=== PATIENT | female | born 2000 | race Caucasian/White ===

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

== ENCOUNTER 2018-01-10 05:55 | Inpatient (IN) | payer OTHER ==
--- NOTE | 2018-01-09 20:27 | P.HPOB ---
History of Present Illness H&P Date: 01/09/18 Chief Complaint: Induction of labor This is a 17-year-old female 1 para 0 with an estimated date of confinement of 01/10/2018, estimated gestational age of 40-0/7 weeks, who presents to labor and delivery for induction of labor. She admits to good movement. She complains of back pain and lower pelvic pressure along with irregular contractions. course has been essentially uncomplicated. labs: GC-negative Chlamydia-positive, test of cure negative Hepatitis B surface antigen-negative RPR-nonreactive Rubella-immune Blood type-A+ Antibody screen-negative Hemoglobin-12.2 Random glucose-82 Obstetrical ultrasound-normal anatomy One hour Glucola-77 Group B streptococcus-negative Obstetrical history: . Gynecologic history: History of chlamydia treated early during this . Social history: She is engaged. She is unemployed. Review of Systems Constitutional: Denies chills, Denies fever Eyes: denies blurred vision, denies pain Ears, nose, mouth and throat: Denies headache, Denies sore throat Cardiovascular: Denies chest pain, Denies shortness of breath Respiratory: Denies cough Gastrointestinal: Reports abdominal pain (Irregular contractions) Genitourinary: Reports pelvic pain, Reports , Denies dysuria, Denies hematuria Musculoskeletal: Reports low back pain, Denies myalgias Integumentary: Denies pruritus, Denies rash Neurological: Denies numbness, Denies weakness 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 No significant issues noted on an osteopathic structural exam other than those noted in the History and Physical/Consult. HEENT: Within normal limits Heart: Regular rate and rhythm Lungs: Clear to auscultation bilaterally Abdomen: Cervix: 1-1/2 cm/70%/-2 station heart tones: 120s by Doppler Extremities: Negative Homans Assessment and Plan (1) 40 weeks gestation of Status: Acute Code(s): Z3A.40 - 40 WEEKS GESTATION OF SNOMED Code( s): 60879512 Plan: Proceed with oxytocin induction of labor. Expectant management. Epidural anesthesia if desired.
[2018-01-10] MEDS ORDERED: CARBOPROST TROMETHAMINE 250 MCG/ML 1 ML AMP IM PRN (06:04)
[2018-01-10] MEDS ORDERED: LIDOCAINE 0.5% (PF) 5 MG/ML (50 ML SDV) SQ PRN (06:04)
[2018-01-10] MEDS ORDERED: METHYLERGONOVINE 0.2 MG/ML 1 ML AMP IM PRN (06:04)
[2018-01-10] MEDS ORDERED: TERBUTALINE 1 MG/ML VIAL SQ PRN (06:04)
[2018-01-10] MEDS ORDERED: OXYTOCIN 20 UNITS/1000 ML NS 1,000 ML IV SCH ×2 (06:04→15:28)
[2018-01-10] MEDS ORDERED: OXYTOCIN 10 UNIT/ML 1 ML VIAL IM PRN (06:04)
[2018-01-10] MEDS ORDERED: LIDOCAINE 1% 20 ML VIAL (10MG/ML) FOR IV START INTRADERMA PRN (06:04)
[2018-01-10] MEDS: LACTATED RINGERS 1,000 ML IV SCH ×2 (06:11→09:46)
[2018-01-10 06:12] VITALS: BMI 26.6
[2018-01-10 06:29] LABS: Basophils % (A) 0 %; Eosinophils # (A) 0.1 k/uL (0-0.7); Eosinophils % (A) 2 %; HCT 34.3 % (34.0-46.0); HGB 11.1 gm/dL (11.4-16.0); Lymphocytes # (A) 1.2 k/uL (1.0-4.8); Lymphocytes % (A) 17 %; MCHC 32.4 g/dL (31.0-37.0); MCV 83.5 fL (80.0-100.0); Mean Platelet Volume 10.2; Monocytes # (A) 0.3 k/uL (0-1.0); Monocytes % (A) 5 %; Neutrophils # (A) 5.2 k/uL (1.3-7.7); Neutrophils % (A) 75 %; Platelet Count 130 k/uL (150-450); RDW 15.3 % (11.5-15.5)
[2018-01-10] MEDS ORDERED: fentaNYL (PF) 50 MCG/ML 5 ML AMP ONE (09:12)
[2018-01-10] MEDS ORDERED: SODIUM CHLORIDE 0.9% 100 ML BAG ONE (09:12)
[2018-01-10] MEDS ORDERED: ROPIVACAINE 5MG/ML 20ML VIAL ONE (09:12)
[2018-01-10] MEDS ORDERED: SIMETHICONE 80 MG CHEWABLE PO PRN (15:28)
[2018-01-10] MEDS ORDERED: diphenhydrAMINE 50 MG/ML 1 ML VIAL IVP PRN ×2 (15:28)
[2018-01-10] MEDS ORDERED: LANOLIN CREAM 5 GM TUBE TOPICAL PRN (15:28)
[2018-01-10] MEDS ORDERED: BENZOCAINE/MENTHOL SPRAY 1 GM/SPRAY AEROSOL TOPICAL PRN (15:28)
[2018-01-10] MEDS ORDERED: WITCH HAZEL 1 EACH MED..PAD TOPICAL PRN (15:28)
[2018-01-10] MEDS ORDERED: diphenhydrAMINE 50 MG CAP PO PRN (15:28)
[2018-01-10] MEDS ORDERED: diphenhydrAMINE 25 MG CAP PO PRN (15:28)
[2018-01-10] MEDS ORDERED: ZOLPIDEM 5 MG TAB PO PRN (15:28)
[2018-01-10] MEDS ORDERED: HYDROCORTISONE 2.5% RECTAL CREAM 30 GM TUBE RECTAL PRN (15:28)
[2018-01-10] MEDS: IBUPROFEN 600 MG TAB PO PRN (16:15)
--- NOTE | 2018-01-10 17:27 | P.PROBDLV ---
Vaginal Delivery Note - . Vaginal Delivery Note: The patient progressed to complete dilation after oxytocin induction of labor and artificial rupture membranes with clear fluid noted. She did receive epidural anesthesia while in labor. Once reaching complete, she began pushing. Infant's head came to a crown. With one further push, the 's head delivered across the perineum in a right occiput anterior lie. The then restituted in a counterclockwise fashion to deliver the right shoulder anteriorly followed by the remainder the . Nose and mouth were bulb suctioned after delivery and was placed on mother's abdomen. Cord was clamped and cut and brisk cry was noted immediately. A viable male infant was noted with scores of 9 at 1 minute and 9 at 5 minutes and weight of 8 lbs. 5 oz. Placenta delivered shortly thereafter, intact, with a three- vessel cord. Uterus contracted well after oxytocin was given and uterine massage was carried out. Inspection of the perineum revealed bilateral periurethral lacerations. These areas were anesthetized with 1% lidocaine and then sutured with 3-0 Vicryl suture in a running locked fashion. Estimated blood loss is approximately 150 mL's. Both mother and are in stable condition.
[2018-01-10] MEDS: ACETAMINOPHEN TAB 325 MG TAB PO PRN (20:30)
[2018-01-10] MEDS: SENNOSIDES-DOCUSATE SODIUM 1 EACH TAB PO SCH ×2 (20:30→21:05)
[2018-01-11] MEDS: IBUPROFEN 600 MG TAB PO PRN (03:54)
[2018-01-11 07:07] LABS: Basophils % (A) 0 %; Eosinophils # (A) 0.1 k/uL (0-0.7); Eosinophils % (A) 1 %; HCT 31.5 % (34.0-46.0); HGB 10.3 gm/dL (11.4-16.0); Hypochromasia Slight; Lymphocytes % (A) 10 %; MCH 28.1 pg (25.0-35.0); MCHC 32.7 g/dL (31.0-37.0); Mean Platelet Volume 9.5; Monocytes # (A) 0.4 k/uL (0-1.0); Monocytes % (A) 4 %; Neutrophils # (A) 8.1 k/uL (1.3-7.7); Neutrophils % (A) 83 %; Platelet Count 127 k/uL (150-450); RBC 3.67 m/uL (3.80-5.40); RDW 15.5 % (11.5-15.5); WBC 9.7 k/uL (4.0-11.0)
[2018-01-11] MEDS: ACETAMINOPHEN TAB 325 MG TAB PO PRN (07:35)
[2018-01-11] MEDS: SENNOSIDES-DOCUSATE SODIUM 1 EACH TAB PO SCH (07:39)
--- NOTE | 2018-01-11 08:44 | P.DS ---
Providers Date of admission: 01/10/18 05:55 Expected date of discharge: 01/11/18 Attending physician: Renata Malik Primary care physician: Stated None - Discharge Diagnosis(es) (1) 40 weeks gestation of Current Visit: No Status: Acute Hospital Course: This is a 17-year-old female 1 para 0 at 40-0/7 weeks who presented to labor and delivery for induction of labor and delivered vaginally a viable male on 01/10/2018 with scores of 9 at 1 minute and 9 at 5 minutes and weight of 8 lbs. 5 oz. Her course has been essentially uncomplicated. Lochia is decreasing. Pain is fairly well controlled with ibuprofen. She is bottle feeding. Vital signs are stable. Abdomen is soft with fundus firm and nontender. Extremities show negative Homans. Impression is status post vaginal delivery day #1. Plan is to discharge home later today. Routine instructions are given. She will be given a prescription for ibuprofen. She is advised follow-up in the office in 6 weeks for check. She is advised to call the office if she has any further questions or concerns prior to her appointment time. Procedures: Oxytocin induction of labor Spontaneous vaginal delivery of a viable male on 01/10/2018 Patient Condition at Discharge: Stable Plan - Discharge Summary New Discharge Prescriptions: New Ibuprofen [Motrin] 600 mg PO Q6HR PRN #60 tab PRN Reason: Mild Pain Or Fever >= 100.5 Continue Pedi Multivit No.25/Folic Acid [Flintstones Multivit Chew Tab] 300 mcg PO DAILY Discharge Medication List Pedi Multivit No.25/Folic Acid [Flintstones Multivit Chew Tab] 300 mcg PO DAILY 11/15/17 [History] Ibuprofen [Motrin] 600 mg PO Q6HR PRN #60 tab 01/11/18 [Rx] Follow up Appointment(s)/Referral(s): Renata Malik DO [Doctor of Osteopathic Medicine] - 6 Weeks Activity/Diet/Wound Care/Special Instructions: Instructions 1. Do not begin any exercise program for 3 weeks. 2. Do not resume sexual relations for 3 weeks or longer if uncomfortable. 3. You may take tub baths or showers at any time. 4. You may use tampons if desired after 3 weeks. 5. Keep the area of episiotomy (stitches) clean and dry. 6. If you are not nursing, wear a good fitting, supportive bra during the day and limit fluid intake for at least 1 week to prevent breast engorgement. 7. Call the office, [phone], within the next week to make appointment for your 6 week checkup if it has not already been made. 8. Report any of the following occurrences to the doctor promptly: a. Heavy, excessive bleeding b. Chills, fever c. Burning or frequency of urination d. Pain or redness and breasts if nursing e. Increasing pain or swelling in episiotomy (stitches). In addition to the above instructions, the following additional should be followed: 1. No heavy lifting or straining (exercising) until after 6 week checkup. 2. Keep abdominal incision clean and dry: You may wear a dressing if more comfortable. 3. Make office appointment for 10 days after going home or as instructed by her doctor. Discharge Disposition: HOME SELF-CARE
[2018-01-11 12:02] VITALS: RESP 18
[2018-01-11 16:09] VITALS: BP 123/69; PULSE 83; TEMP 97.8
== END 2018-01-11 17:00 | disposition home or self-care (01) | DRG 807 ==
LOC: 4FBP 05:55
PROVIDERS: ADMIT Obstetrics & Gynecology; ATTEND Obstetrics & Gynecology
PROC: 0UQMXZZ Repair Vulva, External Approach (ICD-10-PCS; principal; 2018-01-10)
PROC: 10E0XZZ Delivery of Products of Conception, External Approach (ICD-10-PCS; principal; 2018-01-10)
PROC: 3E033VJ Introduction of Other Hormone into Peripheral Vein, Percutaneous Approach (ICD-10-PCS; principal; 2018-01-10)
PROC: 3E0R3NZ Introduction of Analgesics, Hypnotics, Sedatives into Spinal Canal, Percutaneous Approach (ICD-10-PCS; principal; 2018-01-10)
PROC: 10907ZC Drainage of Amniotic Fluid, Therapeutic from Products of Conception, Via Natural or Artificial Opening (ICD-10-PCS; principal; 2018-01-10)
PROC: 00HU33Z Insertion of Infusion Device into Spinal Canal, Percutaneous Approach (ICD-10-PCS; principal; 2018-01-10)
DX: O48.0 Post-term pregnancy (principal); Z37.0 Single live birth; Z3A.40 40 weeks gestation of pregnancy; O71.82 Other specified trauma to perineum and vulva
CPT/HCPCS: 85025; 86850; 86900; 86901

== ENCOUNTER 2020-03-05 23:19 | Emergency (ER) | payer OTHER ==
[2020-03-05 23:27] VITALS: TEMP 98.2
--- NOTE | 2020-03-05 23:40 | ED ---
Abdominal Pain HPI - General Chief Complaint: Abdominal Pain Stated Complaint: Abd Pain, 7 wks Time Seen by Provider: 03/05/20 23:29 Source: patient Mode of arrival: ambulatory Limitations: no limitations - History of Present Illness Initial Comments: 19-year-old female patient presents to the emergency department today for evaluation of left lower quadrant abdominal pain radiating through to her back. She is 7 weeks , . Patient states the pain has been going on for the last couple of days. States it hurts to sit up, lie down, stand, or walk. She denies any abnormal vaginal bleeding or discharge. Denies hematuria, dysuria, urinary frequency, urinary urgency. She does admit to the having some constipation, states she hasn't had a bowel movement over the last several days. States that when she tried to have a bowel movement earlier it caused pain in her rectal area and increased pain in her abdomen. Denies any nausea or vomiting. States she was seen and evaluated at [facility] on 03/02 for mild vaginal bleeding. States her hCG was around 5300 and her US showed a fetus, but no heart tones. She was informed that it could be too early to see the heart beat and was advised to have lab follow up. Patient denies any recent rash, fever, chills, cough, shortness of breath, chest pain, numbness, tingling, dizziness, weakness, headache, visual changes, or any other complaints. - Related Data Home Medications Medication Instructions Recorded Confirmed Pedi Multivit No.25/Folic Acid 300 mcg PO DAILY 11/15/17 01/10/18 [[place] Multivit Chew Tab] Previous Rx's Medication Instructions Recorded Ibuprofen [Motrin] 600 mg PO Q6HR PRN #60 tab 01/11/18 Cephalexin [Keflex] 500 mg PO Q6H #28 cap 03/06/20 Allergies Allergy/AdvReac Type Severity Reaction Status Date / Time No Known Allergies Allergy Verified 03/05/20 23:26 Review of Systems ROS Statement: Those systems with pertinent positive or pertinent negative responses have been documented in the HPI. ROS Other: All systems not noted in ROS Statement are negative. 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 History of Any Multi-Drug Resistant Organisms: None Reported Past Surgical History: No Surgical Hx Reported Additional Past Surgical History / Comment(s): tubes in ears as child Past Anesthesia/Blood Transfusion Reactions: No Reported Reaction Past Psychological History: Anxiety, Depression Smoking Status: Never smoker Past Alcohol Use History: None Reported Past Drug Use History: None Reported - Past Family History Father Family Medical History: No Reported History General Exam Limitations: no limitations General appearance: alert, in no apparent distress, other (This is a well-d eveloped, well-nourished adult female patient in no acute distress. Vital signs upon presentation are temperature 98.2F, pulse 86, respirations 20, blood pressure 125/79, pulse ox 99% on room air.) ENT exam: Present: normal exam, normal oropharynx, mucous membranes moist Respiratory exam: Present: normal lung sounds bilaterally. Absent: respiratory distress, wheezes, rales, rhonchi, stridor Cardiovascular Exam: Present: regular rate, normal rhythm, normal heart sounds. Absent: systolic murmur, diastolic murmur, rubs, gallop, clicks GI/Abdominal exam: Present: soft, tenderness (Left lower left upper quadrant tenderness), normal bowel sounds. Absent: distended, guarding, rebound, rigid Neurological exam: Present: alert, oriented X3, CN II-XII intact Psychiatric exam: Present: normal affect, normal mood Skin exam: Present: warm, dry, intact, normal color. Absent: rash Course Vital Signs 03/05/20 03/06/20 23:21 01:03 Temperature 98.2 F Pulse Rate 86 89 Respiratory 20 18 Rate Blood Pressure 125/79 134/63 O2 Sat by Pulse 99 100 Oximetry Medical Decision Making - Medical Decision Making 19-year-old female patient presented to the emergency department today for evaluation of left lower quadrant abdominal pain. She is 7 weeks , . Physical examination did reveal tenderness over the lower abdomen mostly over the left lower and upper quadrant. Labs reviewed and did reveal hCG level at 9000. Urinalysis showed positive nitrate concerning for UTI. I did review ultrasound report from [facility] obtained on 03/02/2020 showed intrauterine of uncertain viability. Gestational sac is irregular. [place]-rump length measures 6.2 mm corresponding to 6 weeks 3 days estimated gestational age. No heart tones were detected. This is un certain via bili but does not yet reached sonographic criteria for failed first trimester . Given increase in hCG here we will give another prescription for repeat hCG in 2 days to be performed at this lab. She is instructed to follow-up with Dr. Malik as possible and have a repeat ultrasound performed within the next week or 2. She was instructed to return immediately should she develop any worsening pain or heavy vaginal bleeding. She is also given antibiotic for UTI. Patient is agreeable with this plan. - Lab Data Result diagrams: 03/06/20 00:20 03/06/20 00:20 Lab Results 03/06/20 03/06/20 03/06/20 Range/Units 00:20 00:20 00:20 WBC 5.8 (3.8-10.6) k/uL RBC 4.16 (3.80-5.40) m/uL Hgb 11.8 (11.4-16.0) gm/dL Hct 36.3 (34.0-46.0) % MCV 87.5 (80.0-100.0) fL MCH 28.3 (25.0-35.0) pg MCHC 32.4 (31.0-37.0) g/dL RDW 14.1 (11.5-15.5) % Plt Count 159 (150-450) k/uL MPV 10.0 Neutrophils % 71 % Lymphocytes % 19 % Monocytes % 6 % Eosinophils % 2 % Basophils % 0 % Neutrophils # 4.1 (1.3-7.7) k/uL Lymphocytes # 1.1 (1.0-4.8) k/uL Monocytes # 0.3 (0-1.0) k/uL Eosinophils # 0.1 (0-0.7) k/uL Basophils # 0.0 (0-0.2) k/uL Sodium 138 (137-145) mmol/L Potassium 4.0 (3.5-5.1) mmol/L Chloride 106 (98-107) mmol/L Carbon Dioxide 24 (22-30) mmol/L Anion Gap 8 mmol/L BUN 12 (7-17) mg/dL Creatinine 0.80 (0.52-1.04) mg/dL Est GFR (CKD-EPI)AfAm >90 (>60 ml/min/1.73 sqM) Est GFR (CKD-EPI)NonAf >90 (>60 ml/min/1.73 sqM) Glucose 118 H (74-99) mg/dL Calcium 9.2 (8.4-10.2) mg/dL Total Bilirubin 0.3 (0.2-1.3) mg/dL AST 20 (14-36) U/L ALT 16 (4-34) U/L Alkaline Phosphatase 40 (38-126) U/L Total Protein 6.9 (6.3-8.2) g/dL Albumin 4.3 (3.5-5.0) g/dL HCG, Quant 9079.5 mIU/mL Urine Color Yellow Urine Appearance Cloudy H (Clear) Urine pH 5.5 (5.0-8.0) Ur Specific [place] 1.036 H (1.001-1.035) Urine Protein Trace H (Negative) Urine Glucose (UA) Negative (Negative) Urine Ketones Negative (Negative) Urine Blood Moderate H (Negative) Urine Nitrite Positive H (Negative) Urine Bilirubin Negative (Negative) Urine Urobilinogen <2.0 (<2.0) mg/dL Ur Leukocyte Esterase Negative (Negative) Urine RBC 3 (0-5) /hpf Urine WBC 5 (0-5) /hpf Ur Squamous Epith Cells 5 H (0-4) /hpf Calcium Oxalate Crystal Many H (None) /hpf Urine Bacteria Rare H (None) /hpf Urine Mucus Occasional H (None) /hpf Disposition Clinical Impression: Urinary tract infection, Abdominal pain during Disposition: HOME SELF-CARE Condition: Good Instructions (If sedation given, give patient instructions): Abdominal Pain in (ED), Urinary Tract Infection in (ED) Additional Instructions: Complete antibiotic prescription and full. Increase fluids. Return for repeat lab draw in 2 days. Follow-up with Dr. Clarke as soon as possible. Return to the emergency department for any new, worsening, or concerning symptoms. Prescriptions: Cephalexin [Keflex] 500 mg PO Q6H #28 cap Is patient prescribed a controlled substance at d/c from ED?: No Referrals: Jenn Ibrahim MD [Primary Care Provider] - 1-2 days Renata Malik DO [Doctor of Osteopathic Medicine] - 1-2 days Time of Disposition: 01:30
[2020-03-06] MEDS: SODIUM CHLORIDE 0.9% 1,000 ML IV ONE (00:15)
[2020-03-06 00:25] LABS: Basophils % (A) 0 %; Eosinophils # (A) 0.1 k/uL (0-0.7); Eosinophils % (A) 2 %; HCT 36.3 % (34.0-46.0); HGB 11.8 gm/dL (11.4-16.0); Lymphocytes # (A) 1.1 k/uL (1.0-4.8); Lymphocytes % (A) 19 %; MCH 28.3 pg (25.0-35.0); MCHC 32.4 g/dL (31.0-37.0); MCV 87.5 fL (80.0-100.0); Monocytes # (A) 0.3 k/uL (0-1.0); Monocytes % (A) 6 %; Neutrophils # (A) 4.1 k/uL (1.3-7.7); Neutrophils % (A) 71 %; Platelet Count 159 k/uL (150-450); RBC 4.16 m/uL (3.80-5.40); RDW 14.1 % (11.5-15.5); WBC 5.8 k/uL (3.8-10.6)
[2020-03-06 00:30] LABS: Appearance,Urine Cloudy (Clear); Bacteria,Urine Rare /hpf; Bilirubin,Urine Negative (Negative); Blood,Urine Moderate (Negative); Calcium Oxalate Crystals,Urine Many /hpf; Color,Urine Yellow; Glucose,Urine (UA) Negative (Negative); Ketones,Urine Negative (Negative); Leukocyte Esterase,Urine Negative (Negative); Mucus,Urine Occasional /hpf; Nitrite,Urine Positive (Negative); PH, Urine 5.5 (5.0-8.0); Protein,Urine Trace (Negative); RBC,Urine 3 /hpf (0-5); Specific Gravity,Urine 1.036 (1.001-1.035); Squamous Epithelial Cell,Urine 5 /hpf (0-4); Urobilinogen,Urine <2.0 mg/dL (<2.0); WBC,Urine 5 /hpf (0-5)
[2020-03-06 00:35] LABS: ALT 16 U/L (4-34); AST 20 U/L (14-36); African American GFR (CKD) >90 (>60 ml/min/1.73 sqM); Albumin 4.3 g/dL (3.5-5.0); Alkaline Phosphatase 40 U/L (38-126); Anion Gap 8 mmol/L; Blood Urea Nitrogen 12 mg/dL (7-17); Calcium 9.2 mg/dL (8.4-10.2); Carbon Dioxide 24 mmol/L (22-30); Chloride 106 mmol/L (98-107); Glucose 118 mg/dL (74-99); Non-African American GFR(CKD) >90 (>60 ml/min/1.73 sqM); Sodium 138 mmol/L (137-145); Total Bilirubin 0.3 mg/dL (0.2-1.3); Total Protein 6.9 g/dL (6.3-8.2)
[2020-03-06 00:51] LABS: HCG,Quantitative Serum 9079.5 mIU/mL
[2020-03-06] MEDS: cefTRIAXone IN SWFI 1,000 MG/10 ML SYRINGE IVP STA (01:02)
[2020-03-06 01:05] VITALS: BP 134/63; PULSE 89; RESP 18
== END 2020-03-06 01:41 | disposition home or self-care (01) ==
LOC: EC 23:19
DX: O23.41 Unspecified infection of urinary tract in pregnancy, first trimester (principal); Z3A.01 Less than 8 weeks gestation of pregnancy
CPT/HCPCS: 36415; 80053; 85025; 81001; 84702; 99284; 96374; 96361; J0696

== ENCOUNTER 2020-03-07 20:32 | Inpatient (IN) | payer OTHER ==
[~2020-03-07 20:32] MED LIST: LACTATED RINGERS 1,000 ML IV ONE; SODIUM CHLORIDE 0.9% 500 ML 500 ML IV ONE
[2020-03-07] MEDS ORDERED: MORPHINE SULFATE 4 MG/ML SYRINGE IVP STA (21:17)
[2020-03-07 21:28] LABS: Basophils % (A) 0 %; Eosinophils % (A) 0 %; HCT 31.2 % (34.0-46.0); HGB 10.6 gm/dL (11.4-16.0); Lymphocytes # (A) 0.6 k/uL (1.0-4.8); Lymphocytes % (A) 5 %; MCH 29.5 pg (25.0-35.0); MCHC 33.9 g/dL (31.0-37.0); MCV 87.1 fL (80.0-100.0); Mean Platelet Volume 9.9; Monocytes # (A) 0.4 k/uL (0-1.0); Monocytes % (A) 3 %; Neutrophils # (A) 9.9 k/uL (1.3-7.7); Neutrophils % (A) 90 %; Platelet Count 159 k/uL (150-450); RBC 3.58 m/uL (3.80-5.40); RDW 13.9 % (11.5-15.5); WBC 10.9 k/uL (3.8-10.6)
[2020-03-07 21:37] LABS: ALT 15 U/L (4-34); AST 18 U/L (14-36); African American GFR (CKD) >90 (>60 ml/min/1.73 sqM); Albumin 4.3 g/dL (3.5-5.0); Alkaline Phosphatase 53 U/L (38-126); Amylase 75 U/L (30-110); Anion Gap 8 mmol/L; Blood Urea Nitrogen 10 mg/dL (7-17); Calcium 9.2 mg/dL (8.4-10.2); Carbon Dioxide 23 mmol/L (22-30); Chloride 105 mmol/L (98-107); Glucose 145 mg/dL (74-99); Lipase 60 U/L (23-300); Non-African American GFR(CKD) >90 (>60 ml/min/1.73 sqM); Potassium 3.7 mmol/L (3.5-5.1); Sodium 136 mmol/L (137-145); Total Bilirubin 0.5 mg/dL (0.2-1.3)
[2020-03-07 21:49] LABS: Appearance,Urine Cloudy (Clear); Bilirubin,Urine Negative (Negative); Blood,Urine Large (Negative); Color,Urine Light Red; Glucose,Urine (UA) Negative (Negative); Ketones,Urine Negative (Negative); Leukocyte Esterase,Urine Trace (Negative); Mucus,Urine Many /hpf; Nitrite,Urine Negative (Negative); PH, Urine 5.5 (5.0-8.0); Protein,Urine 1+ (Negative); RBC,Urine >182 /hpf (0-5); Specific Gravity,Urine 1.025 (1.001-1.035); Squamous Epithelial Cell,Urine 8 /hpf (0-4); Urobilinogen,Urine <2.0 mg/dL (<2.0); WBC,Urine 37 /hpf (0-5)
[2020-03-07 21:53] LABS: HCG,Quantitative Serum 2989.3 mIU/mL
--- NOTE | 2020-03-07 21:53 | ED ---
General Adult HPI - General Source: patient, RN notes reviewed Mode of arrival: wheelchair Limitations: no limitations <Orion Morgan - Last Filed: 03/07/20 23:03> <Tomasz Wang - Last Filed: 03/11/20 07:32> - General Chief complaint: Abdominal Pain Stated complaint: Constipation/Vaginal Bleeding(8 weeks)/Passed Out Time Seen by Provider: 03/07/20 20:48 - History of Present Illness Initial comments: 19-year-old female currently 8 weeks presents to the emergency room for a chief complaint of abdominal pain. LMP is 01/15/2020. Patient reports that she started having vaginal bleeding and abdominal pain about 5 days ago. States that she was seen at [facility] and had an ult rasound performed. Ultrasound report included below but IUP was seen. Patient states the bleeding has continued since that time. She thought she was constipated and did have an enema here 2 days ago and was successful. Patient states this helped with her pain at that time however the next day it had worsened again. It is a sharp pain in her suprapubic area..Patient has no other complaints at this time including shortness of breath, chest pain, nausea or vomiting, headache, or visual changes. US report from 03/02/20: Intrauterine of uncertain viability. Gestational sac is irregular. [place]-rump length measures 6.2 mm corresponding to 6 week 3 day estimated gestational age. No heart tones detected. (Orion Morgan) - Related Data Home Medications Medication Instructions Recorded Confirmed Acetaminophen [Tylenol] 2,000 mg PO ONCE PRN 03/07/20 03/08/20 Pnv No.95/Ferrous Fum/Folic AC 1 tab PO DAILY 03/07/20 03/08/20 [ Multivitamin Tablet] Previous Rx's Medication Instructions Recorded Acetaminophen-Codeine 300-30mg 1 each PO Q4HR PRN #18 tab 03/11/20 [Tylenol w/codeine #3] Cephalexin [Keflex] 500 mg PO Q6HR 7 Days #28 cap 03/11/20 Ibuprofen [Motrin] 600 mg PO Q6HR PRN #30 tab 03/11/20 Allergies Allergy/AdvReac Type Severity Reaction Status Date / Time pineapple Allergy Unknown Verified 03/08/20 02:59 Review of Systems ROS Other: All systems not noted in ROS Statement are negative. <Orion Morgan Rian - Last Filed: 03/07/20 23:03> ROS Other: All systems not noted in ROS Statement are negative. <Tomasz Wang - Last Filed: 03/11/20 07:32> ROS Statement: Those systems with pertinent positive or pertinent negative responses have been documented in the HPI. 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 History of Any Multi-Drug Resistant Organisms: None Reported Past Surgical History: No Surgical Hx Reported Additional Past Surgical History / Comment(s): tubes in ears as child Past Anesthesia/Blood Transfusion Reactions: No Reported Reaction Past Psychological History: Anxiety, Depression Smoking Status: Never smoker Past Alcohol Use History: None Reported Past Drug Use History: None Reported - Past Family History Father Family Medical History: No Reported History <Orion Morgan Rian - Last Filed: 03/07/20 23:03> General Exam Limitations: no limitations General appearance: alert, in no apparent distress Head exam: Present: atraumatic, normocephalic, normal inspection Eye exam: Present: normal appearance, PERRL, EOMI. Absent: scleral icterus, conjunctival injection, periorbital swelling ENT exam: Present: normal exam, mucous membranes moist Neck exam: Present: normal inspection, full ROM. Absent: tenderness, meningismus, lymphadenopathy Respiratory exam: Present: normal lung sounds bilaterally. Absent: respiratory distress, wheezes, rales, rhonchi, stridor Cardiovascular Exam: Present: regular rate, normal rhythm, normal heart sounds. Absent: systolic murmur, diastolic murmur, rubs, gallop, clicks GI/Abdominal exam: Present: soft, normal bowel sounds. Absent: distended, tenderness, guarding, rebound, rigid Rectal exam: Present: normal inspection, other (Erich JOSEPH present for exam). Absent: fecal impaction External exam: Present: normal external exam, other (Erich RN present for exam). Absent: erythema, swelling, lesions, lacerations, ecchymosis Speculum exam: Present: vaginal bleeding (Minimal). Absent: normal speculum exam, erythema, vaginal discharge, cervical discharge, foreign body, tissue, laceration By manual exam: Present: uterine tenderness. Absent: cervical motion tenderness, adnexal tenderness, adnexal mass, other Neurological exam: Present: alert <Orion Morgan - Last Filed: 03/07/20 23:03> Course Vital Signs 03/07/20 03/07/20 03/07/20 20:45 21:35 22:00 Temperature 97.9 F Pulse Rate 115 H 104 H Respiratory 22 20 20 Rate Blood Pressure 116/59 116/76 109/62 O2 Sat by Pulse 100 100 Oximetry 03/07/20 03/07/20 03/07/20 22:25 22:51 23:35 Temperature 99.3 F 99.3 F Pulse Rate 101 H 107 H 110 H Respiratory 20 18 16 Rate Blood Pressure 116/70 112/91 O2 Sat by Pulse 99 99 99 Oximetry Medical Decision Making - Lab Data Result diagrams: 03/07/20 21:11 03/07/20 21:11 <Orion Morgan - Last Filed: 03/07/20 23:03> - Lab Data Result diagrams: 03/10/20 07:12 03/07/20 21:11 <Tomasz Wang - Last Filed: 03/11/20 07:32> - Medical Decision Making Patient presents to the emergency room with a chief complaint of vaginal bleeding and abdominal pain. Patient reports she is constipated and has tried everything never bowel movement such as drinking apple juice but it is just not helping. Patient currently 8 weeks and is a female with an LMP of January 14. Previous ultrasound was reviewed which showed an IUP without heart tones from 03/02/2020. Pelvic exam was performed and there was minimal vaginal bleeding at this time of her patient is tender in the uterine area. CBC does reveal hemoglobin of 10.6 which is about 1 point lower than 2 days ago. CMP unremarkable. HCG reveals a down trending quadrant from 9000 to 2900. Repeat ultrasound today showed an empty uterus with a complex left adnexal mass that could be ectopic . Dr. Wang immediately contacted Dr. Figueroa who will be coming to the hospital for possible surgery. Dr. Wang updated patient on these results. (Orion Morgan) I saw this patient in conjunction with the physician retail store assistant. I performed independent history and physical exam. Agree with case management. (Tomasz Miller) - Lab Data Lab Results 0103/07/20 03/07/20 Range/Units 21:11 21:11 21:11 WBC 10.9 H (3.8-10.6) k/uL RBC 3.58 L (3.80-5.40) m/uL Hgb 10.6 L (11.4-16.0) gm/dL Hct 31.2 L (34.0-46.0) % MCV 87.1 (80.0-100.0) fL MCH 29.5 (25.0-35.0) pg MCHC 33.9 (31.0-37.0) g/dL RDW 13.9 (11.5-15.5) % Plt Count 159 (150-450) k/uL MPV 9.9 Neutrophils % 90 % Lymphocytes % 5 % Monocytes % 3 % Eosinophils % 0 % Basophils % 0 % Neutrophils # 9.9 H (1.3-7.7) k/uL Lymphocytes # 0.6 L (1.0-4.8) k/uL Monocytes # 0.4 (0-1.0) k/uL Eosinophils # 0.0 (0-0.7) k/uL Basophils # 0.0 (0-0.2) k/uL PT (9.0-12.0) sec INR (<1.2) APTT (22.0-30.0) sec Sodium 136 L (137-145) mmol/L Potassium 3.7 (3.5-5.1) mmol/L Chloride 105 (98-107) mmol/L Carbon Dioxide 23 (22-30) mmol/L Anion Gap 8 mmol/L BUN 10 (7-17) mg/dL Creatinine 0.75 (0.52-1.04) mg/dL Est GFR (CKD-EPI)AfAm >90 (>60 ml/min/1.73 sqM) Est GFR (CKD-EPI)NonAf >90 (>60 ml/min/1.73 sqM) Glucose 145 H (74-99) mg/dL Calcium 9.2 (8.4-10.2) mg/dL Total Bilirubin 0.5 (0.2-1.3) mg/dL AST 18 (14-36) U/L ALT 15 (4-34) U/L Alkaline Phosphatase 53 (38-126) U/L Total Protein 7.0 (6.3-8.2) g/dL Albumin 4.3 (3.5-5.0) g/dL Amylase 75 (30-110) U/L Lipase 60 (23-300) U/L HCG, Quant 2989.3 mIU/mL Urine Color Urine Appearance (Clear) Urine pH (5.0-8.0) Ur Specific [place] (1.001-1.035) Urine Protein (Negative) Urine Glucose (UA) (Negative) Urine Ketones (Negative) Urine Blood (Negative) Urine Nitrite (Negative) Urine Bilirubin (Negative) Urine Urobilinogen (<2.0) mg/dL Ur Leukocyte Esterase (Negative) Urine RBC (0-5) /hpf Urine WBC (0-5) /hpf Ur Squamous Epith Cells (0-4) /hpf Urine Mucus (None) /hpf Blood Type A Positive Blood Type Recheck A Pos Bld Type Recheck Status No Antibody Screen NEGATIVE 03/07/20 03/07/20 03/08/20 Range/Units 21:11 21:34 04:28 WBC 10.4 (3.8-10.6) k/uL RBC 3.09 L (3.80-5.40) m/uL Hgb 9.3 L (11.4-16.0) gm/dL Hct 27.1 L (34.0-46.0) % MCV 87.9 (80.0-100.0) fL MCH 30.1 (25.0-35.0) pg MCHC 34.3 (31.0-37.0) g/dL RDW 13.9 (11.5-15.5) % Plt Count 155 (150-450) k/uL MPV 9.8 Neutrophils % 95 % Lymphocytes % 3 % Monocytes % 2 % Eosinophils % 0 % Basophils % 0 % Neutrophils # 9.9 H (1.3-7.7) k/uL Lymphocytes # 0.3 L (1.0-4.8) k/uL Monocytes # 0.2 (0-1.0) k/uL Eosinophils # 0.0 (0-0.7) k/uL Basophils # 0.0 (0-0.2) k/uL PT 9.7 (9.0-12.0) sec INR 0.9 (<1.2) APTT 22.2 (22.0-30.0) sec Sodium (137-145) mmol/L Potassium (3.5-5.1) mmol/L Chloride (98-107) mmol/L Carbon Dioxide (22-30) mmol/L Anion Gap mmol/L BUN (7-17) mg/dL Creatinine (0.52-1.04) mg/dL Est GFR (CKD-EPI)AfAm (>60 ml/min/1.73 sqM) Est GFR (CKD-EPI)NonAf (>60 ml/min/1.73 sqM) Glucose (74-99) mg/dL Calcium (8.4-10.2) mg/dL Total Bilirubin (0.2-1.3) mg/dL AST (14-36) U/L ALT (4-34) U/L Alkaline Phosphatase (38-126) U/L Total Protein (6.3-8.2) g/dL Albumin (3.5-5.0) g/dL Amylase (30-110) U/L Lipase (23-300) U/L HCG, Quant mIU/mL Urine Color Light Red Urine Appearance Cloudy H (Clear) Urine pH 5.5 (5.0-8.0) Ur Specific [place] 1.025 (1.001-1.035) Urine Protein 1+ H (Negative) Urine Glucose (UA) Negative (Negative) Urine Ketones Negative (Negative) Urine Blood Large H (Negative) Urine Nitrite Negative (Negative) Urine Bilirubin Negative (Negative) Urine Urobilinogen <2.0 (<2.0) mg/dL Ur Leukocyte Esterase Trace H (Negative) Urine RBC >182 H (0-5) /hpf Urine WBC 37 H (0-5) /hpf Ur Squamous Epith Cells 8 H (0-4) /hpf Urine Mucus Many H (None) /hpf Blood Type Blood Type Recheck Bld Type Recheck Status Antibody Screen 03/08/20 03/09/20 03/10/20 Range/Units 16:46 06:03 07:12 WBC 9.7 4.8 4.4 (3.8-10.6) k/uL RBC 2.62 L 2.40 L 2.66 L (3.80-5.40) m/uL Hgb 7.9 L 7.3 L 7.6 L (11.4-16.0) gm/dL Hct 23.5 L 21.6 L 24.0 L (34.0-46.0) % MCV 89.7 89.8 90.3 (80.0-100.0) fL MCH 30.2 30.4 28.6 (25.0-35.0) pg MCHC 33.7 33.8 31.6 (31.0-37.0) g/dL RDW 13.9 14.2 14.4 (11.5-15.5) % Plt Count 158 133 L 169 (150-450) k/uL MPV 9.5 9.8 9.3 Neutrophils % 85 66 63 % Lymphocytes % 7 26 28 % Monocytes % 6 5 5 % Eosinophils % 0 1 2 % Basophils % 0 0 0 % Neutrophils # 8.2 H 3.2 2.8 (1.3-7.7) k/uL Lymphocytes # 0.7 L 1.2 1.3 (1.0-4.8) k/uL Monocytes # 0.6 0.2 0.2 (0-1.0) k/uL Eosinophils # 0.0 0.0 0.1 (0-0.7) k/uL Basophils # 0.0 0.0 0.0 (0-0.2) k/uL PT (9.0-12.0) sec INR (<1.2) APTT (22.0-30.0) sec Sodium (137-145) mmol/L Potassium (3.5-5.1) mmol/L Chloride (98-107) mmol/L Carbon Dioxide (22-30) mmol/L Anion Gap mmol/L BUN (7-17) mg/dL Creatinine (0.52-1.04) mg/dL Est GFR (CKD-EPI)AfAm (>60 ml/min/1.73 sqM) Est GFR (CKD-EPI)NonAf (>60 ml/min/1.73 sqM) Glucose (74-99) mg/dL Calcium (8.4-10.2) mg/dL Total Bilirubin (0.2-1.3) mg/dL AST (14-36) U/L ALT (4-34) U/L Alkaline Phosphatase (38-126) U/L Total Protein (6.3-8.2) g/dL Albumin (3.5-5.0) g/dL Amylase (30-110) U/L Lipase (23-300) U/L HCG, Quant mIU/mL Urine Color Urine Appearance (Clear) Urine pH (5.0-8.0) Ur Specific [place] (1.001-1.035) Urine Protein (Negative) Urine Glucose (UA) (Negative) Urine Ketones (Negative) Urine Blood (Negative) Urine Nitrite (Negative) Urine Bilirubin (Negative) Urine Urobilinogen (<2.0) mg/dL Ur Leukocyte Esterase (Negative) Urine RBC (0-5) /hpf Urine WBC (0-5) /hpf Ur Squamous Epith Cells (0-4) /hpf Urine Mucus (None) /hpf Blood Type Blood Type Recheck Bld Type Recheck Status Antibody Screen Disposition Is patient prescribed a controlled substance at d/c from ED?: No Time of Disposition: 23:05 <Orion Morgan - Last Filed: 03/07/20 23:03> <Tomasz Wang - Last Filed: 03/11/20 07:32> Clinical Impression: Abdominal pain during , Adnexal mass Disposition: ADMITTED IP TO THIS HOSP Condition: Good
[2020-03-07] MEDS ORDERED: HYDROmorphone 0.5 MG/0.5 ML SYRINGE IVP STA (22:05)
--- NOTE | 2020-03-07 22:40 | US ---
EXAMINATION TYPE: Transabdominal DATE OF EXAM: 03/07/2020 10:07 PM COMPARISON: NONE CLINICAL HISTORY: pain. bleeding EXAM PERFORMED: Transvaginal (TV) and Transabdominal (TA) EXAM MEASUREMENTS: GESTATIONAL AGE / DATING Physician Established: Not yet established Dates by LMP: ( 7 weeks/3 days) EDC: 10/21/2020 Dates by Current Scan for: No IUP visualized MATERNAL ANATOMY Uterus: 8.5 x 4.0 x 6.0 cm Right Ovary: not identified Left Ovary: not identified Post CDS / Adnexa: Large, complex mass like area visualized within the left adnexa measuring 12.9 x 7 .1 x 11.2 cm. Possible ectopic vs other Presence of free fluid: Yes, free fluid visualized within right adnexa. Complex fluid visualized in c ul de sac Presence of corpus luteal cyst: not visualized Date of LMP: 01/15/2020 Beta HcG (if available): 2989 No IUP visualized. Large complex mass like area visualized within the left adnexa measuring 12.9 x 7. 1 x 11.2 cm. Possible ectopic vs other. Unable to visualize either ovary with certainty. Endometrium is complex measuring 1.2 cm IMPRESSION: Empty uterus. Complex left adnexal mass could BE ectopic . This exam was discussed with Dr. Wang at 10:30 PM.
[2020-03-07 23:28] LABS: INR 0.9 (<1.2); Partial Thromboplastin Time 22.2 sec (22.0-30.0); Prothrombin Time 9.7 sec (9.0-12.0)
--- NOTE | 2020-03-07 23:44 | P.HPOB ---
History of Present Illness H&P Date: 03/07/20 Chief Complaint: Abdominal pelvic pain and This patient is a 19-year-old 2 para 1 female estimated gestational age 7-1/2 weeks who presented to [facility] emergency department with complaints of persistent lower pelvic pain. Patient apparently was in [facility] on the and at that time ultrasound reportedly saw a gestational sac with no cardiac activity. Patient was having some vaginal bleeding at that time and pelvic pain. She went home and re-presented to the emergency department here on the with similar complaints. Patient was diagnosed with constipation and return tonight with increasing pain. Transvaginal ultrasound tonight shows a very large 13 cm left complex mass consistent with possible ectopic versus other etiology. Patient also has some free fluid and complex fluid in the pelvic cul-de-sac consistent with hemorrhage. 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 History of Any Multi-Drug Resistant Organisms: None Reported Past Surgical History: No Surgical Hx Reported Additional Past Surgical History / Comment(s): tubes in ears as child Past Anesthesia/Blood Transfusion Reactions: No Reported Reaction Past Psychological History: Anxiety, Depression Smoking Status: Never smoker Past Alcohol Use History: None Reported Past Drug Use History: None Reported - Past Family History Father Family Medical History: No Reported History Medications and Allergies Home Medications Medication Instructions Recorded Confirmed Type Acetaminophen [Tylenol] 2,000 mg PO ONCE PRN 03/07/20 03/07/20 History Cephalexin [Keflex] 500 mg PO Q6H 03/07/20 03/07/20 History Pnv No.95/Ferrous Fum/Folic AC 1 tab PO DAILY 03/07/20 03/07/20 History [ Multivitamin Tablet] Allergies Allergy/AdvReac Type Severity Reaction Status Date / Time No Known Allergies Allergy Verified 03/07/20 22:56 Exam Vital Signs Temp Pulse Resp BP Pulse Ox 03/07/20 23:35 99.3 F 110 H 16 112/91 99 03/07/20 22:51 99.3 F 107 H 18 116/70 99 03/07/20 22:25 101 H 20 99 03/07/20 22:00 20 109/62 03/07/20 21:35 104 H 20 116/76 100 03/07/20 20:45 97.9 F 115 H 22 116/59 100 Intake and Output 03/07/20 03/07/20 03/08/20 14:59 22:59 06:59 Other: Weight 83.007 kg - OBG Physical Exam Abdomen: diffuse tenderness, no bruit present, guarding noted (Patient is having significant abdominal pain with guarding.), no hepatomegaly, no splenomegaly, no mass Results Ultrasound as above. Result Diagrams: 03/07/20 21:11 03/07/20 21:11 Abnormal Lab Results - Last 24 Hours (Table) 03/07/20 03/07/20 03/07/20 Range/Units 21:11 21:11 21:34 WBC 10.9 H (3.8-10.6) k/uL RBC 3.58 L (3.80-5.40) m/uL Hgb 10.6 L (11.4-16.0) gm/dL Hct 31.2 L (34.0-46.0) % Neutrophils # 9.9 H (1.3-7.7) k/uL Lymphocytes # 0.6 L (1.0-4.8) k/uL Sodium 136 L (137-145) mmol/L Glucose 145 H (74-99) mg/dL Urine Appearance Cloudy H (Clear) Urine Protein 1+ H (Negative) Urine Blood Large H (Negative) Ur Leukocyte Esterase Trace H (Negative) Urine RBC >182 H (0-5) /hpf Urine WBC 37 H (0-5) /hpf Ur Squamous Epith Cells 8 H (0-4) /hpf Urine Mucus Many H (None) /hpf Assessment and Plan Assessment: This is a pleasant 19-year-old 2 para 1 female with significant lower abdominal pelvic pain and ultrasound findings and beta hCG consistent with probable ruptured ectopic . This could've been a spontaneous with a ruptured hemorrhagic cyst regardless given the large size of the left adnexa I feel it is best to proceed with exploratory laparotomy, possible left salpingostomy, possible left salpingectomy, with excision of ectopic . I discussed this with the patient and her mother. The understands our findings and concern and the risks of surgery including risks of infection, bleeding, possible injury to bowel, bladder, vessels, and/or other organs. All the patient's questions are answered written consent is obtained. (1) Abdominal pain during Current Visit: Yes Status: Acute Code(s): O26.899 - OTH RELATED C ONDITIONS, UNSPECIFIED TRIMESTER; R10.9 - UNSPECIFIED ABDOMINAL PAIN SNOMED Code(s): 911967859
[2020-03-08] MEDS ORDERED: PROPOFOL 10 MG/ML 20 ML VIAL IV ONE (00:43)
[2020-03-08] MEDS ORDERED: DEXAMETHASONE SOD PHOSPHATE 10 MG/ML 1 ML VIAL ONE (00:43)
[2020-03-08] MEDS ORDERED: NEOSTIGMINE 1 MG/ML 10 ML VIAL ONE (00:43)
[2020-03-08] MEDS ORDERED: LIDOCAINE 1% INJ 10MG/ML (20 ML MDV) ONE (00:43)
[2020-03-08] MEDS ORDERED: ONDANSETRON 4 MG/2 ML VIAL ONE (00:43)
[2020-03-08] MEDS ORDERED: MIDAZOLAM 2 MG/2 ML VIAL ONE (00:43)
[2020-03-08] MEDS ORDERED: GLYCOPYRROLATE 0.2 MG/ML 2 ML VIAL ONE (00:43)
[2020-03-08] MEDS ORDERED: fentaNYL (PF) 50 MCG/ML 2 ML AMP ONE (00:43)
[2020-03-08] MEDS ORDERED: SUCCINYLCHOLINE CHLORIDE 100 MG/5 ML SYR IV ONE (00:43)
[2020-03-08] MEDS ORDERED: ROCURONIUM 10 MG/ML (10 ML VIAL) IV ONE (00:43)
[2020-03-08] MEDS ORDERED: KETOROLAC 15 MG/ML 1 ML VIAL ONE (00:43)
[2020-03-08] MEDS: HYDROmorphone 1 MG/ML 1 ML SYRINGE IVP ONE ×4 (01:38→01:55)
[2020-03-08] MEDS ORDERED: diphenhydrAMINE 50 MG/ML 1 ML VIAL IVP ONE (01:45)
--- NOTE | 2020-03-08 01:52 | P.OP ---
Date of Procedure: 03/08/20 Preoperative Diagnosis: #1: Abdominal pelvic pain. #2: Suspected ruptured ectopic , left. #3: Acute abdomen Postoperative Diagnosis: #1: Same. #2: Hemoperitoneum Procedure(s) Performed: #1: 43 laparotomy. #2: Evacuation of hemoperitoneum and excision of left ectopic /left salpingectomy. Anesthesia: GETA Surgeon: Timmy Figueroa Spice Room Worker #1: Jyoti Lance Estimated Blood Loss (ml): 1,000 Pathology: other (Left fallopian tube with ectopic ) Condition: stable Disposition: PACU Indications for Procedure: Please see dictated H&P for intimate details of this patient's admission. Brief summary this pleasant 19-year-old 2 para 1 female estimated gestational age 7-1/2 weeks who presented to the emergency department with complaints of acute abdominal pain. She was seen previously at another facility had an ultrasound that showed a pole in the uterus. Patient continued to have pain and repair is on to our emergency department and the repeat ultrasound shows an empty uterus with a very large 13 cm left adnexal mass. Is also free fluid in the pelvis consistent with possible hemoperitoneum. I discussed with the patient the possibility of a ruptured ectopic and recommended proceed immediately with laparotomy. I also discussed removal of the ectopic and the right fallopian tube. Patient understands this procedure and risks and risks of infection, bleeding, possible injury bowel, bladder, vessels, and/or other organs. All the patient's questions were answered written consent obtained. Operative Findings: This patient had a 1-2 cm dilated area of the left fallopian tube consistent with an ectopic that was ruptured. She had approximate 1000 mL of hemoperitoneum with large clots in the abdomen and pelvis. The uterus appeared normal. The right fallopian tube and ovary appeared normal. Opening to was very friable and therefore had to be removed Description of Procedure: This patient is taken to the operating room where she is laid in the supine position. She subsequently undergoes general endotracheal anesthesia without incident. With an adequate level of anesthesia has a Velasco catheter placed to straight drain. She has abdominal prep and drape. Scalpels and taken and a small Pfannenstiel incision is then made. A second scalpel is taken down the fascia and the fascia scored with scalpel. Fascial incision extended bilaterally using the Blake scissors. Fascia is then dissected off the rectus muscles sharply. Rectus muscles are the peritoneum was identified and entered sharply. Medially upon entering the peritoneum is large amount of dark and bright red blood.'s consistent with a hemoperitoneum. The peritoneum was extended superior and inferiorly. Jesi retractor is placed. Large amounts of clots for then removed manually. Estimated hemoperitoneum was approximately 1000 mL. With this done using a Claudia isolate the left fallopian tube and this obvious is per the ectopic is originating from. Very friable and the fallopian tube does appear for the most part damaged. I look the right side and the right tube and ovary appear normal so is my best interest of the patient to remove the left fallopian tube. 2 curved Heaneys were placed across the fallopian tube. The fallopian tube and associated ectopic is removed. Using a 0 Vicryl suture a interrupted sutures placed across both areas of the fallopian tube. An adequate free tie is placed for added hemostasis. Copious irrigation was done at this time. More clots removed. With hemostasis now assured the procedure is ended. The packs and Jackson retractors removed. All counts are correct 3. The bowels locked fall back into its normal position. Final inspection shows good hemostasis. Perineum was then closed using 0 Vicryl running fashion. Rectus muscles reapproximated in 0 Vicryl in a rapid fashion. Fascia is then closed using 0 PDS. Fascial incision is intact and hemostatic. Subcutaneous tissues and closed using a 3-0 Vicryl. Skin is and closed using niharika. Sterile dressing is applied. Patient is awakened from anesthesia and taken recovery room satisfactory condition. All counts are correct 3. No complications.
[2020-03-08] MEDS ORDERED: SIMETHICONE 80 MG CHEWABLE PO PRN (02:05)
[2020-03-08] MEDS ORDERED: KETOROLAC 15 MG/ML 1 ML VIAL IVP PRN (02:05)
[2020-03-08] MEDS ORDERED: HYDROmorphone PCA 10 MG/50 ML BAG IV PRN (02:05)
[2020-03-08] MEDS ORDERED: NALOXONE 0.4 MG/ML 1 ML VIAL IV PRN (02:05)
[2020-03-08] MEDS ORDERED: ONDANSETRON 4 MG/2 ML VIAL IVP PRN (02:05)
[2020-03-08 04:41] LABS: Basophils % (A) 0 %; Eosinophils % (A) 0 %; HCT 27.1 % (34.0-46.0); HGB 9.3 gm/dL (11.4-16.0); Lymphocytes # (A) 0.3 k/uL (1.0-4.8); Lymphocytes % (A) 3 %; MCH 30.1 pg (25.0-35.0); MCHC 34.3 g/dL (31.0-37.0); MCV 87.9 fL (80.0-100.0); Mean Platelet Volume 9.8; Monocytes # (A) 0.2 k/uL (0-1.0); Monocytes % (A) 2 %; Neutrophils # (A) 9.9 k/uL (1.3-7.7); Neutrophils % (A) 95 %; Platelet Count 155 k/uL (150-450); RBC 3.09 m/uL (3.80-5.40); RDW 13.9 % (11.5-15.5); WBC 10.4 k/uL (3.8-10.6)
[2020-03-08] MEDS: LACTATED RINGERS 1,000 ML IV ONE ×2 (06:24→11:25)
--- NOTE | 2020-03-08 06:52 | P.PN ---
Progress Note - Text Progress Note Date: 03/08/20 Patient is resting without new complaints. Vital signs are stable, she is mildly tachycardic but otherwise doing well. CBC this morning shows a hemoglobin of 9.3 but I suspect it is lower. Plan today is to remove her catheter later this morning, encourage ambulation, beginning clear liquids and advance her diet. Routine postoperative care at this time
[2020-03-08] MEDS: SENNOSIDES-DOCUSATE SODIUM 1 EACH TAB PO SCH ×2 (07:30→20:19)
[2020-03-08] MEDS: IBUPROFEN 600 MG TAB PO PRN ×2 (12:27→20:19)
[2020-03-08 17:00] LABS: Basophils % (A) 0 %; Eosinophils % (A) 0 %; HCT 23.5 % (34.0-46.0); HGB 7.9 gm/dL (11.4-16.0); Lymphocytes # (A) 0.7 k/uL (1.0-4.8); Lymphocytes % (A) 7 %; MCH 30.2 pg (25.0-35.0); MCHC 33.7 g/dL (31.0-37.0); MCV 89.7 fL (80.0-100.0); Mean Platelet Volume 9.5; Monocytes # (A) 0.6 k/uL (0-1.0); Monocytes % (A) 6 %; Neutrophils # (A) 8.2 k/uL (1.3-7.7); Neutrophils % (A) 85 %; Platelet Count 158 k/uL (150-450); RBC 2.62 m/uL (3.80-5.40); RDW 13.9 % (11.5-15.5); WBC 9.7 k/uL (3.8-10.6)
[2020-03-08] MEDS: Acetaminophen-Codeine 300-30mg TAB PO PRN (17:09)
[2020-03-08] MEDS: LACTATED RINGERS 1,000 ML IV SCH (20:19)
[2020-03-08] MEDS: IRON AG/C/B12/CA/SUC.ACID/STOM 1 EACH TAB PO SCH (20:19)
[2020-03-08] MEDS: diphenhydrAMINE 50 MG/ML 1 ML VIAL IVP PRN (20:24)
[2020-03-09] MEDS ORDERED: BENZOCAINE/MENTHOL LOZENG 1 EACH LOZENGE MUCOUS MEM PRN (05:59)
--- NOTE | 2020-03-09 06:02 | P.PN ---
Progress Note - Text Progress Note Date: 03/09/20 Postoperative day #1. Patient is sleeping without new complaints. Vital signs are stable but she's been running a low-grade temperature 99. CBC last evening showed her hemoglobin stabilized at 7.9. Patient's tolerating this at this time. I did start her on some Chromogen and we'll repeat a CBC this morning. Due to her persistent low-grade temperature I'm also going to continue Ancef. Plan today is to encourage ambulation, allow the patient to shower, check CBC, restart her Ancef, and continue routine postoperative care.
[2020-03-09] MEDS: IBUPROFEN 600 MG TAB PO PRN ×2 (06:22→13:42)
[2020-03-09 06:23] LABS: Basophils % (A) 0 %; Eosinophils % (A) 1 %; HCT 21.6 % (34.0-46.0); HGB 7.3 gm/dL (11.4-16.0); Lymphocytes # (A) 1.2 k/uL (1.0-4.8); Lymphocytes % (A) 26 %; MCH 30.4 pg (25.0-35.0); MCHC 33.8 g/dL (31.0-37.0); MCV 89.8 fL (80.0-100.0); Mean Platelet Volume 9.8; Monocytes # (A) 0.2 k/uL (0-1.0); Monocytes % (A) 5 %; Neutrophils # (A) 3.2 k/uL (1.3-7.7); Neutrophils % (A) 66 %; Platelet Count 133 k/uL (150-450); RDW 14.2 % (11.5-15.5); WBC 4.8 k/uL (3.8-10.6)
[2020-03-09] MEDS: IRON AG/C/B12/CA/SUC.ACID/STOM 1 EACH TAB PO SCH (08:45)
[2020-03-09] MEDS: Acetaminophen-Codeine 300-30mg TAB PO PRN ×2 (09:39→18:49)
[2020-03-09] MEDS: SENNOSIDES-DOCUSATE SODIUM 1 EACH TAB PO SCH ×2 (10:08→19:36)
[2020-03-09] MEDS: diphenhydrAMINE 50 MG/ML 1 ML VIAL IVP PRN (19:36)
[2020-03-09] MEDS: LACTATED RINGERS 1,000 ML IV SCH (23:39)
[2020-03-10] MEDS: Acetaminophen-Codeine 300-30mg TAB PO PRN ×4 (01:35→23:54)
[2020-03-10] MEDS: IBUPROFEN 600 MG TAB PO PRN ×3 (04:47→21:56)
--- NOTE | 2020-03-10 06:29 | P.PN ---
Progress Note - Text Progress Note Date: 03/10/20 Postoperative day #2. Patient is resting in bed without new complaints. Vital signs are stable, she had 1 low-grade temperature to 99. Patient is currently on Ancef. Patient is ambulating and urinating without difficulty. CBC yesterday showed a normal white count with a hemoglobin was 7.3. Plan today is to check CBC, continue IV antibiotics, and continue routine postoperative care. Most likely will go home tomorrow.
[2020-03-10] MEDS: LACTATED RINGERS 1,000 ML IV SCH ×4 (06:47→21:55)
[2020-03-10 07:32] LABS: Basophils % (A) 0 %; Eosinophils # (A) 0.1 k/uL (0-0.7); Eosinophils % (A) 2 %; HGB 7.6 gm/dL (11.4-16.0); Lymphocytes # (A) 1.3 k/uL (1.0-4.8); Lymphocytes % (A) 28 %; MCH 28.6 pg (25.0-35.0); MCHC 31.6 g/dL (31.0-37.0); MCV 90.3 fL (80.0-100.0); Mean Platelet Volume 9.3; Monocytes # (A) 0.2 k/uL (0-1.0); Monocytes % (A) 5 %; Neutrophils # (A) 2.8 k/uL (1.3-7.7); Neutrophils % (A) 63 %; Platelet Count 169 k/uL (150-450); RBC 2.66 m/uL (3.80-5.40); RDW 14.4 % (11.5-15.5); WBC 4.4 k/uL (3.8-10.6)
[2020-03-10] MEDS: SENNOSIDES-DOCUSATE SODIUM 1 EACH TAB PO SCH ×2 (07:52→19:35)
[2020-03-10] MEDS: IRON AG/C/B12/CA/SUC.ACID/STOM 1 EACH TAB PO SCH (07:53)
[2020-03-10 23:32] VITALS: RESP 16
[2020-03-11] MEDS: LACTATED RINGERS 1,000 ML IV SCH (04:29)
[2020-03-11] MEDS: IBUPROFEN 600 MG TAB PO PRN (05:43)
--- NOTE | 2020-03-11 06:33 | P.PN ---
Progress Note - Text Progress Note Date: 03/11/20 Postoperative day #3. Patient is sleeping without complaints. Vital signs are stable., She is afebrile. She did have some low-grade temperatures but these do not appear to be infectious related at this time therefore were, discontinue her antibiotics IV and I feel she is stable for discharge home. Incision is intact and dry.
--- NOTE | 2020-03-11 06:42 | P.DS ---
Providers Date of admission: 03/10/20 07:36 Expected date of discharge: 03/11/20 Attending physician: Timmy Figueroa Primary care physician: Jenn Ibrahim - Discharge Diagnosis(es) (1) Abdominal pain during Current Visit: Yes Status: Acute Hospital Course: Please see dictated H&P for intimate details of this patient's admission. Brief summary is a pleasant 19-year-old 2 para 1 female admitted through the emergency department with acute abdomen ruptured ectopic . Patient underwent exploratory laparotomy with evacuation of hemoperitoneum and excision of ectopic . Please see dictated operative note. Postoperative patient did do well her hemoglobin stabilized at about 7-1/2. She had a low- grade temperature which I treated with IV antibiotics. Postoperative and 3 patient's felt be stable for discharge home follow up with me in 1 week. Procedures: Exploratory laparotomy, evacuation of hemoperitoneum, left salpingectomy with excision of ectopic Patient Condition at Discharge: Good Plan - Discharge Summary New Discharge Prescriptions: New Cephalexin [Keflex] 500 mg PO Q6HR 7 Days #28 cap Ibuprofen [Motrin] 600 mg PO Q6HR PRN #30 tab PRN Reason: Mild Discomfort Acetaminophen-Codeine 300-30mg [Tylenol w/codeine #3] 1 each PO Q4HR PRN #18 tab PRN Reason: Moderate Pain Discontinued Cephalexin [Keflex] 500 mg PO Q6H No Action Pnv No.95/Ferrous Fum/Folic AC [ Multivitamin Tablet] 1 tab PO DAILY Acetaminophen [Tylenol] 2,000 mg PO ONCE PRN PRN Reason: Pain Discharge Medication List Acetaminophen [Tylenol] 2,000 mg PO ONCE PRN 03/07/20 [History] Pnv No.95/Ferrous Fum/Folic AC [ Multivitamin Tablet] 1 tab PO DAILY 03/07/20 [History] Acetaminophen-Codeine 300-30mg [Tylenol w/codeine #3] 1 each PO Q4HR PRN #18 tab 03/11/20 [Rx] Cephalexin [Keflex] 500 mg PO Q6HR 7 Days #28 cap 03/11/20 [Rx] Ibuprofen [Motrin] 600 mg PO Q6HR PRN #30 tab 03/11/20 [Rx] Follow up Appointment(s)/Referral(s): Timmy Figueroa MD [STAFF PHYSICIAN] - 03/17/20 8:45 am Patient Instructions/Handouts: Exploratory Laparotomy (DC), Ectopic (DC) Activity/Diet/Wound Care/Special Instructions: No heavy lifting or strenuous activity for 6 weeks. No intercourse or anything per vagina for 6 weeks. Please call if any fever, chills, excessive vaginal bleeding, and/or abdominal pain. Discharge Disposition: HOME SELF-CARE
[2020-03-11] MEDS: IRON AG/C/B12/CA/SUC.ACID/STOM 1 EACH TAB PO SCH (08:28)
[2020-03-11 08:56] VITALS: BP 112/60; PULSE 80; TEMP 98.3
[2020-03-11] MEDS: Acetaminophen-Codeine 300-30mg TAB PO PRN (09:12)
[2020-03-11] MEDS: SENNOSIDES-DOCUSATE SODIUM 1 EACH TAB PO SCH (16:38)
== END 2020-03-11 09:47 | disposition home or self-care (01) | DRG 817 ==
LOC: EC 20:32 → 4FBP 23:36 → OBSVTOIN 03-10 07:36
PROVIDERS: ADMIT Obstetrics & Gynecology; ATTEND Obstetrics & Gynecology
PROC: 0W9G0ZZ Drainage of Peritoneal Cavity, Open Approach (ICD-10-PCS; principal; 2020-03-08 23:54)
PROC: 0UT60ZZ Resection of Left Fallopian Tube, Open Approach (ICD-10-PCS; principal; 2020-03-08 23:54)
PROC: 10T20ZZ Resection of Products of Conception, Ectopic, Open Approach (ICD-10-PCS; principal; 2020-03-08 23:54)
DX: O00.102 Left tubal pregnancy without intrauterine pregnancy (principal); K66.1 Hemoperitoneum; K59.00 Constipation, unspecified; H40.9 Unspecified glaucoma; Z79.899 Other long term (current) drug therapy; Z86.69 Personal history of other diseases of the nervous system and sense organs; Z86.59 Personal history of other mental and behavioral disorders; Z98.890 Other specified postprocedural states; Z91.018 Allergy to other foods
CPT/HCPCS: 36415; 76801; 76817; 80053; 81001; 82150; 83690; 84702; 85025; 85610; 85730; 86850; 86900; 86901; 87086; 88305; 96365; 96375; 99285

== ENCOUNTER 2021-07-06 02:47 | Emergency (ER) | payer OTHER ==
[2021-07-06 03:03] VITALS: BP 122/80; PULSE 71; RESP 20; TEMP 98.1
--- NOTE | 2021-07-06 06:46 | ED ---
ENT HPI - General Chief complaint: Dental/Oral Stated complaint: Tooth pain Time Seen by Provider: 07/06/21 06:31 Source: patient, RN notes reviewed Mode of arrival: ambulatory Limitations: no limitations - History of Present Illness Initial comments: This a 20-year-old female presents emergency Department with chief complaint abdominal pain. Patient states she's had a broken tooth for a long period time but states that it's recent started bothering her. Patient states her face is swollen, subjective fevers and chills. No difficulty swallowing patient offers no other complaints. - Related Data Home Medications Medication Instructions Recorded Confirmed Acetaminophen [Tylenol] 2,000 mg PO ONCE PRN 03/07/20 03/08/20 Pnv No.95/Ferrous Fum/Folic AC 1 tab PO DAILY 03/07/20 03/08/20 [ Multivitamin Tablet] Previous Rx's Medication Instructions Recorded Acetaminophen-Codeine 300-30mg 1 each PO Q4HR PRN #18 tab 03/11/20 [Tylenol w/codeine #3] Cephalexin [Keflex] 500 mg PO Q6HR 7 Days #28 cap 03/11/20 Ibuprofen [Motrin] 600 mg PO Q6HR PRN #30 tab 03/11/20 Penicillin V Potassium [Pen Vee K] 500 mg PO QID #40 tablet 07/06/21 Allergies Allergy/AdvReac Type Severity Reaction Status Date / Time pineapple Allergy Unknown Verified 07/06/21 03:03 Review of Systems ROS Statement: Those systems with pertinent positive or pertinent negative responses have been documented in the HPI. ROS Other: All systems not noted in ROS Statement are negative. 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 History of Any Multi-Drug Resistant Organisms: None Reported Past Surgical History: No Surgical Hx Reported Additional Past Surgical History / Comment(s): tubes in ears as child Past Anesthesia/Blood Transfusion Reactions: No Reported Reaction Past Psychological History: Anxiety, Depression Smoking Status: Never smoker Past Alcohol Use History: None Reported Past Drug Use History: None Reported - Past Family History Father Family Medical History: No Reported History General Exam Limitations: no limitations General appearance: alert, in no apparent distress Head exam: Present: atraumatic, normocephalic, normal inspection ENT exam: Present: mucous membranes moist. Absent: normal exam, normal oropharynx (Dental Alisha, swelling along the gumline, no drainable abscess mild facial swelling.) Neck exam: Present: normal inspection. Absent: tenderness, meningismus, lymphadenopathy Respiratory exam: Present: normal lung sounds bilaterally. Absent: respiratory distress, wheezes, rales, rhonchi, stridor Cardiovascular Exam: Present: regular rate, normal rhythm, normal heart sounds. Absent: systolic murmur, diastolic murmur, rubs, gallop, clicks Course Vital Signs 07/06/21 02:59 Temperature 98.1 F Pulse Rate 71 Respiratory 20 Rate Blood Pressure 122/80 O2 Sat by Pulse 100 Oximetry Medical Decision Making - Medical Decision Making Patient has dental Alisha, dental infection will be started on antibiotics and follow-up with dentist return parameters were discussed. Disposition Clinical Impression: Pain, dental, Dental infection Disposition: HOME SELF-CARE Condition: Stable Instructions (If sedation given, give patient instructions): Toothache (ED) Additional Instructions: Please return to the Emergency Department if symptoms worsen or any other concerns. Prescriptions: Penicillin V Potassium [Pen Vee K] 500 mg PO QID #40 tablet Is patient prescribed a controlled substance at d/c from ED?: No Referrals: Jenn Ibrahim MD [Primary Care Provider] - 1-2 days Time of Disposition: 06:46
== END 2021-07-06 06:58 | disposition home or self-care (01) ==
LOC: EC 02:47
DX: K04.7 Periapical abscess without sinus (principal); Z91.018 Allergy to other foods
CPT/HCPCS: 99283

== ENCOUNTER 2021-11-06 15:37 | Emergency (ER) | payer OTHER ==
[2021-11-06 16:29] VITALS: BP 102/53; PULSE 95; RESP 18; TEMP 99
[2021-11-06 18:04] LABS: Basophils % (A) 1 %; Eosinophils % (A) 0 %; HCT 35.3 % (34.0-46.0); HGB 11.9 gm/dL (11.4-16.0); Lymphocytes # (A) 0.1 k/uL (1.0-4.8); Lymphocytes % (A) 2 %; MCH 30.3 pg (25.0-35.0); MCHC 33.6 g/dL (31.0-37.0); MCV 90.4 fL (80.0-100.0); Monocytes # (A) 0.2 k/uL (0-1.0); Monocytes % (A) 3 %; Neutrophils # (A) 5.2 k/uL (1.3-7.7); Neutrophils % (A) 94 %; Platelet Count 104 k/uL (150-450); RBC 3.91 m/uL (3.80-5.40); RDW 12.8 % (11.5-15.5); WBC 5.6 k/uL (3.8-10.6)
--- NOTE | 2021-11-06 18:06 | US ---
EXAMINATION TYPE: Transabdominal DATE OF EXAM: 11/06/2021 5:45 PM COMPARISON: US 2021 CLINICAL HISTORY: pain. Return visit - pelvic pain EXAM PERFORMED: Transabdominal (TA) EXAM MEASUREMENTS: GESTATIONAL AGE / DATING Physician Established: Not yet established Dates by LMP: LMP unknown Dates by First Scan: (11 weeks/4 days) EDC: 05/24/2022 Dates by Current Scan for: (11 weeks/4 days) EDC: 05/24/2022 MATERNAL ANATOMY Uterus: 11.0 x 8.9 x 9.9cm Right Ovary: 2.9 x 1.2 x 1.8cm Left Ovary: 3.9 x 2.0 x 2.7cm Post CDS / Adnexa: wnl Presence of free fluid: no Presence of corpus luteal cyst: not seen Presence of subchorionic bleed: 1.7 x 1.3 x 1.3cm - superior to gestational sac GESTATION / SURVEY CRL: 4.7cm (11 weeks/4 days) Yolk Sac (normal less than 6mm): not seen Heart Rate: 190 bpm Rhythm: Normal IUP: Viable IUP Date of LMP: Unknown Beta HcG (if available): Not available at time of exam IMPRESSION: 1. Single viable intrauterine . 2. Suspect small subchorionic bleed measuring 1.7 x 1.3 x 1.3 cm superior to the gestational sac.
[2021-11-06 18:07] LABS: Appearance,Urine Cloudy (Clear); Bacteria,Urine Moderate /hpf; Bilirubin,Urine Negative (Negative); Blood,Urine Negative (Negative); Color,Urine Yellow; Glucose,Urine (UA) Negative (Negative); Ketones,Urine 2+ (Negative); Leukocyte Esterase,Urine Small (Negative); Mucus,Urine Moderate /hpf; Nitrite,Urine Positive (Negative); PH, Urine 5.5 (5.0-8.0); Protein,Urine Trace (Negative); RBC,Urine <1 /hpf (0-5); Specific Gravity,Urine 1.026 (1.001-1.035); Squamous Epithelial Cell,Urine 3 /hpf (0-4); Urobilinogen,Urine <2.0 mg/dL (<2.0); WBC,Urine 2 /hpf (0-5)
[2021-11-06] MEDS ORDERED: CEPHALEXIN 500 MG CAP PO STA (18:18)
[2021-11-06 18:23] LABS: ALT 10 U/L (4-34); AST 17 U/L (14-36); African American GFR (CKD) >90 (>60 ml/min/1.73 sqM); Albumin 4.1 g/dL (3.5-5.0); Alkaline Phosphatase 34 U/L (38-126); Anion Gap 12 mmol/L; Blood Urea Nitrogen 11 mg/dL (7-17); Calcium 8.9 mg/dL (8.4-10.2); Carbon Dioxide 19 mmol/L (22-30); Chloride 101 mmol/L (98-107); Glucose 93 mg/dL (74-99); Non-African American GFR(CKD) >90 (>60 ml/min/1.73 sqM); Potassium 3.5 mmol/L (3.5-5.1); Sodium 132 mmol/L (137-145); Total Bilirubin 0.4 mg/dL (0.2-1.3); Total Protein 6.8 g/dL (6.3-8.2)
--- NOTE | 2021-11-06 18:30 | ED ---
Female Urogenital HPI - General Chief complaint: Urogenital Stated complaint: Abd pain,fever-11 weeks preg. Time Seen by Provider: 11/06/21 17:07 Source: patient Mode of arrival: ambulatory Limitations: no limitations - History of Present Illness Initial comments: Patient is a 21-year-old female currently about 11 weeks presenting with chief complaint of pelvic cramping. Patient states symptoms have been ongoing since yesterday. She was recently diagnosed with UTI but never went to [employer] her antibiotics. She also admits to vaginal discomfort. No vaginal bleeding or discharge. Some nausea, no vomiting. No flank pain or upper abdominal pain. No chest pain or shortness of breath. No fever or chills. Patient is currently taking a vitamin, she is scheduled for her first OB appointment later on this month. - Related Data Home Medications Medication Instructions Recorded Confirmed Acetaminophen [Tylenol] 2,000 mg PO ONCE PRN 03/07/20 03/08/20 Pnv No.95/Ferrous Fum/Folic AC 1 tab PO DAILY 03/07/20 03/08/20 [ Multivitamin Tablet] Previous Rx's Medication Instructions Recorded Acetaminophen-Codeine 300-30mg 1 each PO Q4HR PRN #18 tab 03/11/20 [Tylenol w/codeine #3] Cephalexin [Keflex] 500 mg PO Q6HR 7 Days #28 cap 03/11/20 Ibuprofen [Motrin] 600 mg PO Q6HR PRN #30 tab 03/11/20 Penicillin V Potassium [Pen Vee K] 500 mg PO QID #40 tablet 07/06/21 Cephalexin [Keflex] 500 mg PO Q12HR 7 Days #14 cap 11/06/21 Allergies Allergy/AdvReac Type Severity Reaction Status Date / Time pineapple Allergy Unknown Verified 11/06/21 16:29 Review of Systems ROS Statement: Those systems with pertinent positive or pertinent negative responses have been documented in the HPI. ROS Other: All systems not noted in ROS Statement are negative. 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 History of Any Multi-Drug Resistant Organisms: None Reported Past Surgical History: No Surgical Hx Reported Additional Past Surgical History / Comment(s): tubes in ears as child Past Anesthesia/Blood Transfusion Reactions: No Reported Reaction Past Psychological History: Anxiety, Depression Smoking Status: Never smoker Past Alcohol Use History: None Reported Past Drug Use History: None Reported - Past Family History Father Family Medical History: No Reported History General Exam Limitations: no limitations General appearance: alert, in no apparent distress Head exam: Present: atraumatic, normocephalic, normal inspection Eye exam: Present: normal appearance, EOMI. Absent: scleral icterus, periorbital swelling Neck exam: Present: normal inspection Respiratory exam: Present: normal lung sounds bilaterally. Absent: respiratory distress, wheezes, rales, rhonchi, stridor Cardiovascular Exam: Present: regular rate, normal rhythm, normal heart sounds. Absent: systolic murmur, diastolic murmur, rubs, gallop, clicks GI/Abdominal exam: Present: soft, normal bowel sounds. Absent: distended, tenderness, guarding, rebound, rigid Neurological exam: Present: alert, oriented X3, CN II-XII intact Psychiatric exam: Present: normal affect, normal mood Skin exam: Present: warm, dry, intact, normal color. Absent: rash Course Vital Signs 11/06/21 16:25 Temperature 99 F Pulse Rate 95 Respiratory 18 Rate Blood Pressure 102/53 O2 Sat by Pulse 98 Oximetry Medical Decision Making - Medical Decision Making Patient is a 21-year-old female currently about 11 weeks presenting with chief complaint of pelvic cramping. No bleeding or discharge. Patient was recently diagnosed with UTI, did not [employer] her course of antibiotics. On examination no tenderness on palpation of the abdomen. Urine shows positive nitrites, small leukocytes, moderate bacteria, 2+ ketones. Ultrasound shows single viable intrauterine with heart rate of 190 bpm. Suspect small subchorionic bleed measuring 1.7 x 1.3 x 1.3 cm superior to the gestational sac. I educated the patient on these findings. Serum prescription for Keflex 500 mg twice a day for 7 days. I encouraged the patient to keep her scheduled OB appointment and stressed the importance of follow-up. Report back to ER with any new or worsening symptoms. Discussed return parameters answered all questions. Patient conveyed verbal understanding and agreed to the plan. I discussed this case with my attending Dr. Wang. - Lab Data Result diagrams: 11/06/21 17:39 11/06/21 17:39 Lab Results 11/06/21 11/06/21 11/06/21 Range/Units 17:39 17:39 17:39 WBC 5.6 (3.8-10.6) k/uL RBC 3.91 (3.80-5.40) m/uL Hgb 11.9 (11.4-16.0) gm/dL Hct 35.3 (34.0-46.0) % MCV 90.4 (80.0-100.0) fL MCH 30.3 (25.0-35.0) pg MCHC 33.6 (31.0-37.0) g/dL RDW 12.8 (11.5-15.5) % Plt Count 104 L (150-450) k/uL MPV 11.0 Neutrophils % 94 % Lymphocytes % 2 % Monocytes % 3 % Eosinophils % 0 % Basophils % 1 % Neutrophils # 5.2 (1.3-7.7) k/uL Lymphocytes # 0.1 L (1.0-4.8) k/uL Monocytes # 0.2 (0-1.0) k/uL Eosinophils # 0.0 (0-0.7) k/uL Basophils # 0.0 (0-0.2) k/uL Sodium 132 L (137-145) mmol/L Potassium 3.5 (3.5-5.1) mmol/L Chloride 101 (98-107) mmol/L Carbon Dioxide 19 L (22-30) mmol/L Anion Gap 12 mmol/L BUN 11 (7-17) mg/dL Creatinine 0.69 (0.52-1.04) mg/dL Est GFR (CKD-EPI)AfAm >90 (>60 ml/min/1.73 sqM) Est GFR (CKD-EPI)NonAf >90 (>60 ml/min/1.73 sqM) Glucose 93 (74-99) mg/dL Calcium 8.9 (8.4-10.2) mg/dL Total Bilirubin 0.4 (0.2-1.3) mg/dL AST 17 (14-36) U/L ALT 10 (4-34) U/L Alkaline Phosphatase 34 L (38-126) U/L Total Protein 6.8 (6.3-8.2) g/dL Albumin 4.1 (3.5-5.0) g/dL HCG, Quant 354361.0 mIU/mL Urine Color Yellow Urine Appearance Cloudy H (Clear) Urine pH 5.5 (5.0-8.0) Ur Specific [place] 1.026 (1.001-1.035) Urine Protein Trace H (Negative) Urine Glucose (UA) Negative (Negative) Urine Ketones 2+ H (Negative) Urine Blood Negative (Negative) Urine Nitrite Positive H (Negative) Urine Bilirubin Negative (Negative) Urine Urobilinogen <2.0 (<2.0) mg/dL Ur Leukocyte Esterase Small H (Negative) Urine RBC <1 (0-5) /hpf Urine WBC 2 (0-5) /hpf Ur Squamous Epith Cells 3 (0-4) /hpf Urine Bacteria Moderate H (None) /hpf Urine Mucus Moderate H (None) /hpf Disposition Clinical Impression: Threatened miscarriage Disposition: HOME SELF-CARE Condition: Good Instructions (If sedation given, give patient instructions): Threatened Miscarriage (ED), Urinary Tract Infection in (ED) Additional Instructions: Follow-up with your CHEMICAL TECHNICIAN. Report back to ER with any new or worsening symptoms. Take medication as prescribed. Prescriptions: Cephalexin [Keflex] 500 mg PO Q12HR 7 Days #14 cap Is patient prescribed a controlled substance at d/c from ED?: No Referrals: Jenn Ibrahim MD [Primary Care Provider] - 1-2 days Time of Disposition: 18:30
== END 2021-11-06 18:50 | disposition home or self-care (01) ==
LOC: EC 15:37
DX: O20.0 Threatened abortion (principal); Z3A.11 11 weeks gestation of pregnancy; Z91.018 Allergy to other foods
CPT/HCPCS: 36415; 76801; 80053; 81001; 84702; 85025; 99284

== ENCOUNTER 2022-03-19 13:09 | Outpatient (CLI) | payer OTHER ==
[2022-03-19 14:27] VITALS: BP 117/66; PULSE 91; RESP 16; TEMP 97.5
--- NOTE | 2022-04-05 12:15 | P.MSEPDOC ---
Presenting Problems - Arrival Data Date of Arrival on Unit: 03/19/22 Time of Arrival on Unit: 13:09 Mode of Transport: Ambulatory - Complaint OB-Reason for Admission/Chief Complaint: Rule Out PROM Comment: pt reports periodlike cramping for last 3 days and a gush of clear fluid noted around 0600 today, amnisure negative and no contractions tracing or palpated, nst reactive Medical History - Information : 3 Para: 1 Term: 1 : 0 Abortions: Spontaneous or Elective: 1 Number of Living Children: 1 - Gestational Age Gestational Age by CHARAN (wks/days): 30 Weeks and 2 Days Review of Systems - Review of Systems Constitutional: No problems Breast: No problems ENT: No problems Cardiovascular: No problems Respiratory: No problems Gastrointestinal: No problems Genitourinary: No problems Musculoskeletal: No problems Neurological: No problems Skin: No problems Vital Signs - Temperature Temperature: 97.5 F Temperature Source: Temporal Artery Scan - Pulse Right Brachial Pulse Rate: 91 Pulse Assessment Method: Automatic Cuff - Respirations Respiratory Rate: 16 Oxygen Delivery Method: Room Air - Blood Pressure Right Arm Blood Pressure: 117/66 Blood Pressure Mean: 83 Blood Pressure Source: Automatic Cuff Medical Screen Scoring - Assessment - Baby A Baseline FHR: 140 Heart Rate - NICHD Category: Category I (Normal) NST: Reactive Physician Notification - Physician Notified Physician Notified Date: 03/19/22 Physician Notified Time: 14:11 Physician: Ana Mcbride New Order Received: Yes (dc home) Maternal Triage Index - Urgent/Priority 2 Urgent Priority 2: Yes Provider Notified: Ana Mcbride Provider Notified Time: 14:11 Criteria Met for Priority 2: amnisure result negative with reactive nst Disposition - Disposition OB Disposition: Discharge to home, Written follow up instructions reviewed Discharge Date: 03/19/22 Discharge Time: 14:15 I agree with the RN Medical Screening Exam: Yes Case reviewed; plan agreed upon as documented in EMR&OBIX.: Yes Diagnosis: rule out rupture of membranes
== END 2022-03-19 14:15 | disposition home or self-care (01) ==
LOC: FBPOP 13:09
PROVIDERS: ATTEND Obstetrics & Gynecology
DX: O24.419 Gestational diabetes mellitus in pregnancy, unspecified control (principal); Z3A.30 30 weeks gestation of pregnancy; Z91.018 Allergy to other foods
CPT/HCPCS: 59025; G0463; 99213

== ENCOUNTER 2022-05-24 06:00 | Inpatient (IN) | payer OTHER ==
[2022-05-24] MEDS ORDERED: TERBUTALINE 1 MG/ML VIAL SQ PRN (06:50)
[2022-05-24] MEDS ORDERED: LIDOCAINE 0.5% (PF) 5 MG/ML (50 ML SDV) SQ PRN (06:50)
[2022-05-24] MEDS ORDERED: OXYTOCIN 30 UNITS/500 ML NS 30 UNIT in SALINE 1 500ML.BAG IV SCH ×2 (07:00→12:30)
[2022-05-24] MEDS: LACTATED RINGERS 1,000 ML IV SCH ×3 (07:16→19:30)
[2022-05-24 07:47] LABS: Basophils % (A) 0 %; Eosinophils # (A) 0.1 k/uL (0-0.7); Eosinophils % (A) 1 %; HCT 27.9 % (34.0-46.0); HGB 9.2 gm/dL (11.4-16.0); Hypochromasia Slight; Lymphocytes # (A) 1.1 k/uL (1.0-4.8); Lymphocytes % (A) 20 %; MCH 25.9 pg (25.0-35.0); MCHC 32.8 g/dL (31.0-37.0); Mean Platelet Volume 11.6; Monocytes # (A) 0.3 k/uL (0-1.0); Monocytes % (A) 6 %; Neutrophils # (A) 3.8 k/uL (1.3-7.7); Neutrophils % (A) 70 %; Platelet Count 100 k/uL (150-450); Poikilocytosis Slight; RBC 3.53 m/uL (3.80-5.40); RDW 14.6 % (11.5-15.5); WBC 5.5 k/uL (3.8-10.6)
--- NOTE | 2022-05-24 09:23 | P.HPOB ---
History of Present Illness H&P Date: 05/24/22 Chief Complaint: Elective induction of labor Ms. Gross is a 21 year old at 39 weeks and 5 days with EDC of 05/26/2022 by LMP c/w 7 week US who presents for elective induction of labor. Her has been uncomplicated. Recent growth ultrasound at 32 weeks showed an estimated weight in the 47%ile. Obstetric history: 1 FTVD, uncomplicated Maternal serologies: blood type A positive, antibody screen negative, rubell immune, VDRL non-reactive, HBsAg negative, HIV negative, GC negative, CT negative, 1 hour GTT 110, group B strep negative. 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 History of Any Multi-Drug Resistant Organisms: None Reported Past Surgical History: No Surgical Hx Reported Additional Past Surgical History / Comment(s): tubes in ears as child Past Anesthesia/Blood Transfusion Reactions: No Reported Reaction Past Psychological History: Anxiety, Depression Additional Psychological History / Comment(s): not currently medicated Smoking Status: Vaper Past Alcohol Use History: None Reported Past Drug Use History: None Reported - Past Family History Father Family Medical History: No Reported History Medications and Allergies Home Medications Medication Instructions Recorded Confirmed Type Vit No.179/Iron/Folic 1 tab PO DAILY 03/19/22 05/24/22 History [ Tablet] Allergies Allergy/AdvReac Type Severity Reaction Status Date / Time pineapple Allergy Unknown Verified 05/24/22 06:49 Exam Vital Signs Pulse Resp BP Pulse Ox 05/24/22 06:49 90 16 124/65 99 Intake and Output 05/23/22 05/24/22 05/24/22 22:59 06:59 14:59 Other: Weight 77.564 kg Focused physical exam is performed. This is a healthy-appearing in no apparent distress. Cervical exam is 3cm dilation, 80% effaced, and -3 station. Category I FHTs are noted. Results Result Diagrams: 05/24/22 07:16 Abnormal Lab Results - Last 24 Hours (Table) 05/24/22 Range/Units 07:16 RBC 3.53 L (3.80-5.40) m/uL Hgb 9.2 L (11.4-16.0) gm/dL Hct 27.9 L (34.0-46.0) % MCV 79.0 L (80.0-100.0) fL Plt Count 100 L (150-450) k/uL Assessment and Plan Assessment: 21 year old at 39 weeks and 5 days here for eIOL Plan: Admit, NPO, mIVF, pitocin per protocol, continuous EFM, close monitoring of patient. Time with Patient: Less than 30 (15 minutes)
[2022-05-24] MEDS ORDERED: SODIUM CHLORIDE 0.9% 100 ML BAG ONE (10:36)
[2022-05-24] MEDS ORDERED: ROPIVACAINE 5 MG/ML 20 ML AMPULE ONE (10:36)
[2022-05-24] MEDS ORDERED: fentaNYL (PF) 50 MCG/ML 5 ML AMP ONE (10:36)
[2022-05-24] MEDS ORDERED: ROPIVACAINE 100 MG, fentaNYL (PF). 200 MCG in SODIUM CHLORIDE 0.9% 76 ML EPIDURAL ONE (11:29)
--- NOTE | 2022-05-24 12:28 | P.PROBDLV ---
Vaginal Delivery Note - . Vaginal Delivery Note: DATE OF SERVICE: 05/24/2022 PROCEDURE: Normal Vaginal Delivery ATTENDING: Dr. Iris Vallejo MD ESTIMATED BLOOD LOSS: 200 mL FINDINGS: VFI, Apgars 8/9, weight 8#2oz PROCEDURE: Patient was a 21 y/o at 39 weeks and 5 days who presented to labor and delivery for elective induction. Oxytocin per protocol was started and AROM was eventually undertaken with clear fluid noted. She obtained epidural anesthesia per her request. She precipitously progressed to complete dilation. She pushed the head effectively. Head was delivered and a shoulder dystocia of 45 seconds was encountered. Please see the separate should dystocia documentation for further information about the maneuvers required to deliver the . placed on maternal abdomen and bulb suctioned. Cord was clamped and cut after a 30 second delay. Placenta delivered whole with gentle cord traction. Oxytocin was started to facilitate uterine tone. Uterine fundus firm and bleeding minimal upon fundal massage. Perineal inspection revealed no lacerations. Patient stable .
[2022-05-24] MEDS ORDERED: BENZOCAINE/MENTHOL SPRAY 1 GM/SPRAY AEROSOL TOPICAL PRN (12:30)
[2022-05-24] MEDS ORDERED: diphenhydrAMINE 25 MG CAP PO PRN (12:30)
[2022-05-24] MEDS ORDERED: SIMETHICONE 80 MG CHEWABLE PO PRN (12:30)
[2022-05-24] MEDS ORDERED: HYDROCORTISONE 2.5% RECTAL CREAM 30 GM TUBE RECTAL PRN (12:30)
[2022-05-24] MEDS ORDERED: diphenhydrAMINE 50 MG/ML 1 ML VIAL IVP PRN ×2 (12:30)
[2022-05-24] MEDS ORDERED: LANOLIN CREAM 5 GM TUBE TOPICAL PRN (12:30)
[2022-05-24] MEDS ORDERED: ZOLPIDEM 5 MG TAB PO PRN (12:30)
[2022-05-24] MEDS ORDERED: diphenhydrAMINE 50 MG CAP PO PRN (12:30)
[2022-05-24] MEDS ORDERED: ACETAMINOPHEN TAB 325 MG TAB PO PRN (12:30)
[2022-05-24] MEDS: IBUPROFEN 600 MG TAB PO SCH ×2 (14:26→20:09)
[2022-05-24] MEDS: SENNOSIDES-DOCUSATE SODIUM 1 EACH TAB PO SCH (21:16)
[2022-05-25 00:40] VITALS: RESP 16
[2022-05-25] MEDS: LACTATED RINGERS 1,000 ML IV SCH (02:08)
[2022-05-25] MEDS: IBUPROFEN 600 MG TAB PO SCH ×2 (02:08→04:30)
[2022-05-25 04:36] VITALS: PULSE 78
[2022-05-25 08:18] LABS: Basophils % (A) 0 %; Eosinophils # (A) 0.1 k/uL (0-0.7); Eosinophils % (A) 1 %; HCT 31.9 % (34.0-46.0); HGB 10.3 gm/dL (11.4-16.0); Hypochromasia Slight; Lymphocytes # (A) 1.1 k/uL (1.0-4.8); Lymphocytes % (A) 15 %; MCHC 32.4 g/dL (31.0-37.0); MCV 80.2 fL (80.0-100.0); Mean Platelet Volume 12.6; Monocytes # (A) 0.3 k/uL (0-1.0); Monocytes % (A) 4 %; Neutrophils % (A) 79 %; Platelet Count 113 k/uL (150-450); RBC 3.97 m/uL (3.80-5.40); RDW 14.7 % (11.5-15.5); WBC 7.7 k/uL (3.8-10.6)
[2022-05-25 09:05] VITALS: BP 118/58; TEMP 97.9
[2022-05-25] MEDS: SENNOSIDES-DOCUSATE SODIUM 1 EACH TAB PO SCH (09:06)
--- NOTE | 2022-05-25 10:51 | P.DS ---
Providers Date of admission: 05/24/22 06:43 Expected date of discharge: 05/25/22 Attending physician: Iris Vallejo MD Primary care physician: Stated None Hospital Course: This is a 21 year old now day #1 s/p vaginal delivery complicated by shoulder dystocia. She initially presented for elective induciton of labor. She progressed quickly to complete dilation after induction was started. A short shoulder dystocia was encountered and the infant has no sequelae from this. She desires discharge home today. She is meeting all milestones. She is eating and drinking without nausea or vomiting. Lochia is minimal. She is voiding and having bowel movements without difficulty. She is formula feeding her infant, which is going well. She denies fevers, chills, chest pain, shortness of breath, pain/swelling in the legs. We discussed restrictions including pelvic rest for 6 weeks. She is encouraged to call the office for any heavy bleeding, foul-smelling vaginal discharge, breast complaints, or any other concerns she has. She will follow up in the office at 6 weeks and we will discuss contraception at that time. All questions answered. Assessment: 21 year old now s/p vaginal delivery complicated by shoulder dystocia Patient Condition at Discharge: Good Plan - Discharge Summary New Discharge Prescriptions: No Action Vit No.179/Iron/Folic [ Tablet] 1 tab PO DAILY Discharge Medication List Vit No.179/Iron/Folic [ Tablet] 1 tab PO DAILY 03/19/22 [History] Follow up Appointment(s)/Referral(s): Iris Vallejo MD [STAFF PHYSICIAN] - 6 Weeks Patient Instructions/Handouts: Depression (DC), Perineal Care (DC), Bleeding (DC), Vaginal Delivery (DC), Your [place]'s Appearance (DC), Caring for Your Baby (DC), Breast Care for the Non- Mother (DC) Discharge Disposition: HOME SELF-CARE
[2022-05-25 12:03] LABS: Large Platelets Present
== END 2022-05-25 13:10 | disposition home or self-care (01) | DRG 560 ==
LOC: 4FBP 06:43
PROVIDERS: ADMIT Obstetrics & Gynecology; ATTEND Obstetrics & Gynecology
PROC: 10E0XZZ Delivery of Products of Conception, External Approach (ICD-10-PCS; principal; 2022-05-25)
PROC: 10907ZC Drainage of Amniotic Fluid, Therapeutic from Products of Conception, Via Natural or Artificial Opening (ICD-10-PCS; 2022-05-25)
PROC: 3E033VJ Introduction of Other Hormone into Peripheral Vein, Percutaneous Approach (ICD-10-PCS; 2022-05-25)
PROC: 4A0HXCZ Measurement of Products of Conception, Cardiac Rate, External Approach (ICD-10-PCS; 2022-05-25)
DX: O66.0 Obstructed labor due to shoulder dystocia (principal); F32.A Depression, unspecified; F41.9 Anxiety disorder, unspecified; O99.334 Smoking (tobacco) complicating childbirth; F17.290 Nicotine dependence, other tobacco product, uncomplicated; O99.344 Other mental disorders complicating childbirth; Z37.0 Single live birth; Z3A.39 39 weeks gestation of pregnancy; Z91.018 Allergy to other foods
CPT/HCPCS: 85025; 86850; 86900; 86901

== ENCOUNTER 2023-01-13 21:48 | Outpatient (CLI) | payer OTHER ==
[2023-01-13 23:37] VITALS: BP 105/56; PULSE 71; RESP 14; TEMP 97.9
--- NOTE | 2023-03-27 16:13 | P.MSEPDOC ---
Presenting Problems - Arrival Data Date of Arrival on Unit: 01/13/23 Time of Arrival on Unit: 21:48 Mode of Transport: Wheelchair - Complaint OB-Reason for Admission/Chief Complaint: Other Comment: Pt reports that she lost her mucus plug Medical History - Information : 4 Para: 2 Term: 2 : 0 Abortions: Spontaneous or Elective: 1 Number of Living Children: 2 - Gestational Age Gestational Age by CHARAN (wks/days): 23 Weeks and 6 Days - History Complications: Other Comment: Daily vaper Review of Systems - Review of Systems Constitutional: No problems Breast: No problems ENT: No problems Cardiovascular: No problems Respiratory: No problems Gastrointestinal: No problems Genitourinary: No problems Musculoskeletal: No problems Neurological: No problems Skin: No problems Vital Signs - Temperature Temperature: 97.9 F Temperature Source: Temporal Artery Scan - Pulse Right Pulse Oximetery Pulse Rate: 71 Pulse Assessment Method: Pulse Oximetry - Respirations Respiratory Rate: 14 Oxygen Delivery Method: Room Air O2 Sat by Pulse Oximetry: 99 - Blood Pressure Right Arm Blood Pressure: 105/56 Blood Pressure Mean: 72 Blood Pressure Source: Automatic Cuff Medical Screen Scoring - Cervical Exam Dilation (cm): 0 Effacement (%): 0 Membranes: Intact Physician Notification - Physician Notified Physician Notified Date: 01/13/23 Physician Notified Time: 22:14 Physician: Josefina Epps New Order Received: Yes - Notification Comment Comment: Dr. Epps notified of pt's arrival to triage with c/o loosing her mucus plug. Report given including maternal and status. Orders for a SVE, if pt is closed/thick, she ca nbe D/C'ed home. Maternal Triage Index - Maternal Triage Index Presenting for scheduled procedure w/no complaint: No - Stat/Priority 1 Stat Priority 1: No - Urgent/Priority 2 Urgent Priority 2: No - Prompt/Priority 3 Prompt Priority 3: No - Non-Urgent/Priority 4 Non-Urgent Priority 4: Yes Criteria Met for Priority 4: Pt is a with CHARAN 05/06/23 here at 23.6 weeks of gestation with c/o loosing her mucus plug. Pt denies complications with the . Disposition - Disposition OB Disposition: Discharge to home Discharge Date: 01/13/23 Discharge Time: 22:36 I agree with the RN Medical Screening Exam: Yes Case reviewed; plan agreed upon as documented in EMR&OBIX.: Yes Diagnosis: RELATED CONDITIONS, UNSPECIFIED, SECOND TRIMESTER
== END 2023-01-13 22:36 | disposition home or self-care (01) ==
LOC: FBPOP 21:48
PROVIDERS: ATTEND Obstetrics & Gynecology Obstetrics
DX: O26.892 Other specified pregnancy related conditions, second trimester (principal); O99.332 Smoking (tobacco) complicating pregnancy, second trimester; F17.290 Nicotine dependence, other tobacco product, uncomplicated; Z3A.23 23 weeks gestation of pregnancy; Z91.018 Allergy to other foods
CPT/HCPCS: 99213

== ENCOUNTER 2023-01-25 08:05 | Outpatient (CLI) | payer OTHER ==
[2023-01-25 11:47] VITALS: BP 110/61; PULSE 79; RESP 16; TEMP 97.3
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
== END 2023-01-25 11:25 | disposition home or self-care (01) ==
LOC: FBPOP 08:05
PROVIDERS: ATTEND Obstetrics & Gynecology
DX: O9A.212 Injury, poisoning and certain other consequences of external causes complicating pregnancy, second trimester (principal); S49.90XA Unspecified injury of shoulder and upper arm, unspecified arm, initial encounter; O99.332 Smoking (tobacco) complicating pregnancy, second trimester; F17.200 Nicotine dependence, unspecified, uncomplicated; Z3A.25 25 weeks gestation of pregnancy; Z91.018 Allergy to other foods; W10.8XXA Fall (on) (from) other stairs and steps, initial encounter
CPT/HCPCS: 99213

== ENCOUNTER 2023-02-08 12:51 | Outpatient (CLI) | payer OTHER ==
[2023-02-08 14:09] LABS: Color,Urine Light Orange
[2023-02-08 14:10] LABS: Appearance,Urine Clear (Clear); Bilirubin,Urine Negative (Negative); Blood,Urine Negative (Negative); Glucose,Urine (UA) Negative (Negative); Ketones,Urine Negative (Negative); Leukocyte Esterase,Urine Negative (Negative); Nitrite,Urine Negative (Negative); PH, Urine 6.5 (5.0-8.0); Protein,Urine Trace (Negative); Specific Gravity,Urine 1.029 (1.001-1.035)
[2023-02-08 14:17] VITALS: BP 120/58; PULSE 96; RESP 17; TEMP 97.3
[2023-02-08 14:20] LABS: Bacteria,Urine Rare /hpf; Mucus,Urine Moderate /hpf; RBC,Urine <1 /hpf (0-5); Squamous Epithelial Cell,Urine 3 /hpf (0-4); WBC,Urine 1 /hpf (0-5)
--- NOTE | 2023-03-08 17:37 | P.MSEPDOC ---
Presenting Problems - Arrival Data Date of Arrival on Unit: 02/08/23 Time of Arrival on Unit: 12:51 Mode of Transport: Ambulatory - Complaint OB-Reason for Admission/Chief Complaint: Pain Comment: pt presents to triage for back pain and cervical pain describing it as pressure rating it 4-5/10 Medical History - Information : 4 Para: 2 Term: 2 : 0 Abortions: Spontaneous or Elective: 1 Number of Living Children: 2 - Gestational Age Gestational Age by CHARAN (wks/days): 27 Weeks and 4 Days Review of Systems - Review of Systems Constitutional: No problems Breast: No problems ENT: No problems Cardiovascular: No problems Respiratory: No problems Gastrointestinal: No problems Genitourinary: No problems Musculoskeletal: No problems Neurological: No problems Skin: No problems Vital Signs - Temperature Temperature: 97.3 F Temperature Source: Temporal Artery Scan - Pulse Right Brachial Pulse Rate: 96 Pulse Assessment Method: Automatic Cuff - Respirations Respiratory Rate: 17 Oxygen Delivery Method: Room Air - Blood Pressure Right Arm Blood Pressure: 120/58 Blood Pressure Mean: 78 Blood Pressure Source: Automatic Cuff Medical Screen Scoring - Cervical Exam Dilation (cm): 0 - Uterine Contractions Resting: Soft to palpation - Assessment - Baby A Baseline FHR: 130 Heart Rate - NICHD Category: Category I (Normal) Maternal Triage Index - Maternal Triage Index Presenting for scheduled procedure w/no complaint: No - Stat/Priority 1 Stat Priority 1: No - Urgent/Priority 2 Urgent Priority 2: Yes Provider Notified: Iris Vallejo Provider Notified Time: 13:29 Criteria Met for Priority 2: pt presents to triage for back pain and cervical pain describing it as pressure rating it 4-5/10 Disposition - Disposition OB Disposition: Triage, Discharge to home, Written follow up instructions reviewed Discharge Date: 02/08/23 Discharge Time: 13:45 I agree with the RN Medical Screening Exam: Yes Physician's MSE Comment: I have neither seen nor examined the patient Case reviewed; plan agreed upon as documented in EMR&OBIX.: Yes Diagnosis: RELATED CONDITIONS, UNSPECIFIED, SECOND TRIMESTER
== END 2023-02-08 13:45 | disposition home or self-care (01) ==
LOC: FBPOP 12:51
PROVIDERS: ATTEND Obstetrics & Gynecology
DX: O26.892 Other specified pregnancy related conditions, second trimester (principal); M54.50 Low back pain, unspecified; M54.2 Cervicalgia; Z3A.27 27 weeks gestation of pregnancy; Z91.018 Allergy to other foods
CPT/HCPCS: 81003; G0463; 99213

== ENCOUNTER 2023-03-20 16:10 | Outpatient (CLI) | payer OTHER ==
[2023-03-20 17:56] VITALS: BP 125/65; PULSE 91; RESP 16; TEMP 96.9
--- NOTE | 2023-03-23 13:41 | P.MSEPDOC ---
Presenting Problems - Arrival Data Date of Arrival on Unit: 03/20/23 Time of Arrival on Unit: 16:10 Mode of Transport: Ambulatory - Complaint OB-Reason for Admission/Chief Complaint: Vaginal Bleeding Medical History - Information : 4 Para: 2 Term: 2 : 0 Abortions: Spontaneous or Elective: 1 Number of Living Children: 2 - Gestational Age Gestational Age by CHARAN (wks/days): 33 Weeks and 2 Days Review of Systems - Review of Systems Constitutional: No problems Breast: No problems ENT: No problems Cardiovascular: No problems Respiratory: No problems Gastrointestinal: No problems Genitourinary: No problems Musculoskeletal: No problems Neurological: No problems Skin: No problems Vital Signs - Temperature Temperature: 96.9 F Temperature Source: Temporal Artery Scan - Pulse Pulse Oximetery Pulse Rate: 91 Pulse Assessment Method: Pulse Oximetry - Respirations Respiratory Rate: 16 Oxygen Delivery Method: Room Air O2 Sat by Pulse Oximetry: 98 - Blood Pressure Right Arm Blood Pressure: 125/65 Blood Pressure Mean: 85 Blood Pressure Source: Automatic Cuff Medical Screen Scoring - Assessment - Baby A Baseline FHR: 130 Heart Rate - NICHD Category: Category I (Normal) NST: Reactive Physician Notification - Physician Notified Physician Notified Date: 03/20/23 Physician Notified Time: 17:10 Physician: Iris Vallejo New Order Received: Yes - Notification Comment Comment: Dr. Vallejo called, report given on maternal complaint of vaginal bleeding "before noon" only when she went to the restroom and none since. Exam shows no bleeding at this time. NST is reactive and pt has no pain. Pt has an appointment on monday. Orders to discharge pt home Maternal Triage Index - Maternal Triage Index Presenting for scheduled procedure w/no complaint: No - Stat/Priority 1 Stat Priority 1: No - Urgent/Priority 2 Urgent Priority 2: Yes Provider Notified: Iris Vallejo Provider Notified Time: 17:10 Criteria Met for Priority 2: 33 3/7wks, c/o vaginal bleeding/spotting, none upon exam Disposition - Disposition OB Disposition: Discharge to home Discharge Date: 03/20/23 Discharge Time: 17:15 I agree with the RN Medical Screening Exam: Yes Physician's MSE Comment: I have neither seen nor examined the patient Case reviewed; plan agreed upon as documented in EMR&OBIX.: Yes Diagnosis: ENCNTR FOR SUPRVSN OF NORMAL PREG, UNSP, THIRD TRIMESTER
== END 2023-03-20 17:15 | disposition home or self-care (01) ==
LOC: FBPOP 16:10
PROVIDERS: ATTEND Obstetrics & Gynecology
DX: O47.03 False labor before 37 completed weeks of gestation, third trimester (principal); O46.93 Antepartum hemorrhage, unspecified, third trimester; Z3A.33 33 weeks gestation of pregnancy; Z91.018 Allergy to other foods
CPT/HCPCS: 59025; G0463; 99213

== ENCOUNTER 2023-03-22 13:50 | Outpatient (CLI) | payer OTHER ==
[2023-03-22] MEDS ORDERED: BETAMET ACET-BETAMETH SOD PHOS 6 MG/ML MDV IM SCH (14:00)
[2023-03-22 15:24] VITALS: BP 115/62; PULSE 78; RESP 16; TEMP 97.5
--- NOTE | 2023-03-22 15:39 | US ---
EXAMINATION TYPE: US OB BPP wo non-stress DATE OF EXAM: 03/22/2023 COMPARISON: US 11/06/2021 CLINICAL INDICATION: Female, 22 years old with history of Nonreactive NST; TECHNIQUE: Transabdominal (TA). Scoring by the vice president global digital marketing during real-time assessment. FINDINGS: BPP PARAMETERS: PRESENTATION: Vertex LIE: Longitudinal?? HEART RATE: 156 bpm RHYTHM: Normal MOJGAN: 12.75 DIAPHRAGM IMAGED: Yes BPP SCORIN. Breathing: YES (1 episode of breathing of 30 second duration in 30 minutes of scanning time) 2. Movement: YES (at least 3 discrete body movements in 30 minutes) 3. Tone: YES (1 episode of active flexion/extension of limb) 4. MOJGAN: NORMAL (MOJGAN index > 5cm) ACCOUNT MANAGEMENT ASSISTANT NOTES: Unremarkable exam; preliminary slip given to nurse IMPRESSION: TOTAL SCORE: 8 / 8
== END 2023-03-22 15:15 | disposition home or self-care (01) ==
LOC: FBPOP 13:50
PROVIDERS: ATTEND Obstetrics & Gynecology
DX: O60.03 Preterm labor without delivery, third trimester (principal); O34.33 Maternal care for cervical incompetence, third trimester; Z3A.33 33 weeks gestation of pregnancy; Z91.018 Allergy to other foods; Z29.89 Encounter for other specified prophylactic measures
CPT/HCPCS: 59025; 96372; 76819; J0702

== ENCOUNTER 2023-03-23 14:10 | Outpatient (CLI) | payer OTHER ==
[2023-03-23] MEDS ORDERED: BETAMET ACET-BETAMETH SOD PHOS 6 MG/ML MDV IM SCH (14:30)
[2023-03-23 15:49] VITALS: BP 142/65; PULSE 94; RESP 18; TEMP 97.8
== END 2023-03-23 15:28 | disposition home or self-care (01) ==
LOC: FBPOP 14:10
PROVIDERS: ATTEND Obstetrics & Gynecology
DX: O60.03 Preterm labor without delivery, third trimester (principal); Z3A.33 33 weeks gestation of pregnancy; Z91.018 Allergy to other foods
CPT/HCPCS: 59025; 96372; J0702

== ENCOUNTER 2023-05-01 05:54 | Inpatient (IN) | payer OTHER ==
[2023-05-01] MEDS ORDERED: miSOPROStoL 200 MCG TAB PO PRN (06:07)
[2023-05-01] MEDS ORDERED: TRANEXAMIC 1,000 MG/100ML-NACL 1,000 MG in EMPTY BAG 1 BAG IV PRN (06:07)
[2023-05-01] MEDS ORDERED: CARBOPROST TROMETHAMINE 250 MCG/ML 1 ML AMP IM PRN (06:07)
[2023-05-01] MEDS ORDERED: TERBUTALINE 1 MG/ML VIAL SQ PRN (06:07)
[2023-05-01] MEDS ORDERED: OXYTOCIN 10 UNIT/ML 1 ML VIAL IM PRN (06:07)
[2023-05-01] MEDS ORDERED: LIDOCAINE 0.5% (PF) 5 MG/ML (50 ML SDV) SQ PRN (06:07)
[2023-05-01] MEDS: LACTATED RINGERS 1,000 ML IV SCH (06:15)
[2023-05-01 06:20] LABS: Basophils % (A) 0 %; Eosinophils # (A) 0.1 k/uL (0-0.7); Eosinophils % (A) 1 %; HCT 30.6 % (34.0-46.0); Hypochromasia Moderate; Lymphocytes # (A) 1.3 k/uL (1.0-4.8); Lymphocytes % (A) 19 %; MCH 24.3 pg (25.0-35.0); MCHC 32.5 g/dL (31.0-37.0); MCV 74.8 fL (80.0-100.0); Mean Platelet Volume 12.7; Microcytosis Slight; Monocytes # (A) 0.2 k/uL (0-1.0); Monocytes % (A) 4 %; Neutrophils # (A) 5.2 k/uL (1.3-7.7); Neutrophils % (A) 75 %; Poikilocytosis Slight; RDW 15.3 % (11.5-15.5)
[2023-05-01] MEDS: OXYTOCIN 30 UNITS/500 ML NS 30 UNIT in SALINE 1 500ML.BAG IV SCH (06:30)
[2023-05-01 06:32] LABS: Platelet Count 95 k/uL (150-450)
[2023-05-01 06:46] LABS: Poikilocytosis (M) Present
--- NOTE | 2023-05-01 07:43 | P.HPOB ---
History of Present Illness H&P Date: 05/01/23 Chief Complaint: Induction of labor Ms. Gross is a 22 year old at 39 weeks and 2 days with EDC of 05/06/2023 by LMP consistent with 6 week ultrasound who presents to labor and delivery for elective induction of labor. The has been complicated by maternal va ping, for which the risks were reviewed and she was advised to quit. This was also a short-interval with her last delivery on 05/24/2022. Otherwise, the has been uncomplicated. Obstetric history: 2 full term vaginal delivery, second delivery complicated by a mild shoulder dystocia relived with the usual maneuvers. work-up: blood type A positive, antibody negative, rubella immune, VDRL non-reactive, HBsAg negative, HIV negative, HCV Ab negative, gonorrhea negative, chlamydia negative, GBS negative. 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 History of Any Multi-Drug Resistant Organisms: None Reported Past Surgical History: No Surgical Hx Reported Additional Past Surgical History / Comment(s): tubes in ears as child Past Anesthesia/Blood Transfusion Reactions: No Reported Reaction Past Psychological History: Anxiety, Depression Additional Psychological History / Comment(s): not currently medicated Smoking Status: Vaper Past Alcohol Use History: None Reported Past Drug Use History: None Reported - Past Family History Father Family Medical History: No Reported History Medications and Allergies Home Medications Medication Instructions Recorded Confirmed Type Vit No.179/Iron/Folic 1 tab PO DAILY 01/25/23 05/01/23 History [ Tablet] Allergies Allergy/AdvReac Type Severity Reaction Status Date / Time pineapple Allergy Unknown Verified 05/01/23 06:06 Exam Intake and Output 04/30/23 05/01/23 05/01/23 22:59 06:59 14:59 Other: Weight 80.286 kg Focused physical exam is performed. This is a healthy-appearing in no apparent distress. Breathing is non-labored. Abdomen is gravid and non-tender. Cervix is 5/80/-3, bag of water is currently intact. Extremities are non-tender and non-edematous. heart tones are Category I and tocometer is graphing contractions every 2-5 minutes. Results Result Diagrams: 05/01/23 06:10 Abnormal Lab Results - Last 24 Hours (Table) 05/01/23 Range/Units 06:10 Hgb 10.0 L (11.4-16.0) gm/dL Hct 30.6 L (34.0-46.0) % MCV 74.8 L (80.0-100.0) fL MCH 24.3 L (25.0-35.0) pg Plt Count 95 L (150-450) k/uL Assessment and Plan Assessment: 22 year old at 39 weeks and 2 days here for induction of labor Plan: Admit, clear liquid diet, pitocin per protocol, continuous EFM and tocometer, close monitoring of patient. Time with Patient: Less than 30
[2023-05-01] MEDS ORDERED: ZOLPIDEM 5 MG TAB PO PRN (10:41)
[2023-05-01] MEDS ORDERED: HYDROcodone/APAP 5-325MG 1 EACH TAB PO PRN (10:41)
[2023-05-01] MEDS ORDERED: diphenhydrAMINE 50 MG/ML 1 ML VIAL IVP PRN ×2 (10:41)
[2023-05-01] MEDS ORDERED: HYDROcodone/APAP 7.5-325MG 1 EACH TAB PO PRN (10:41)
[2023-05-01] MEDS ORDERED: diphenhydrAMINE 25 MG CAP PO PRN (10:41)
[2023-05-01] MEDS ORDERED: BENZOCAINE/MENTHOL SPRAY 1 GM/SPRAY AEROSOL TOPICAL PRN (10:41)
[2023-05-01] MEDS ORDERED: SIMETHICONE 80 MG CHEWABLE PO PRN (10:41)
[2023-05-01] MEDS ORDERED: LANOLIN CREAM 1 GM TUBE TOPICAL PRN (10:41)
[2023-05-01] MEDS ORDERED: HYDROCORTISONE 2.5% RECTAL CREAM 30 GM TUBE RECTAL PRN (10:41)
[2023-05-01] MEDS ORDERED: diphenhydrAMINE 50 MG CAP PO PRN (10:41)
[2023-05-01] MEDS ORDERED: OXYTOCIN 30 UNITS/500 ML NS 30 UNIT in SALINE 1 500ML.BAG IV SCH (10:45)
--- NOTE | 2023-05-01 10:46 | P.PROBDLV ---
Vaginal Delivery Note - . Vaginal Delivery Note: The patient is a 22-year-old 4 para 2-0-1-2 admitted at 39-2/7 weeks by good dating parameters for elective induction. Her has been uncomplicated and group B strep status is negative. On labor and delivery, she had Pitocin augmentation started. She declined analgesia aside from OB nitrous oxide. She made fairly rapid progress for the active phase of labor to complete and then pushed over the course of 2-3 contractions to a normal spontaneous va ginal delivery of a viable 8 pound 12 ounce baby boy with Apgars of 8 at 1 minute and 9 at 5 minutes delivered in the left occiput anterior position. The placenta was delivered spontaneously, intact, and grossly normal with a grossly normal, centrally inserted three-vessel cord. There were no lacerations of the perineum, vagina, or cervix. Estimated blood loss for the case was approximately 150 cc. There were no complications. Both mother and are resting comfortably in recovery.
[2023-05-01] MEDS: IBUPROFEN 600 MG TAB PO PRN (10:58)
[2023-05-01] MEDS: ACETAMINOPHEN TAB 325 MG TAB PO PRN (13:03)
[2023-05-01] MEDS: METHYLERGONOVINE 0.2 MG/ML 1 ML AMP IM PRN (14:58)
[2023-05-01 16:40] VITALS: RESP 16
[2023-05-01] MEDS: SENNOSIDES-DOCUSATE SODIUM 1 EACH TAB PO SCH (21:47)
[2023-05-02 06:16] LABS: Basophils % (A) 0 %; Eosinophils # (A) 0.1 k/uL (0-0.7); Eosinophils % (A) 1 %; HCT 30.9 % (34.0-46.0); HGB 9.9 gm/dL (11.4-16.0); Hypochromasia Moderate; Lymphocytes # (A) 1.4 k/uL (1.0-4.8); Lymphocytes % (A) 15 %; MCH 24.4 pg (25.0-35.0); MCHC 32.1 g/dL (31.0-37.0); MCV 75.9 fL (80.0-100.0); Mean Platelet Volume 13.4; Microcytosis Slight; Monocytes # (A) 0.3 k/uL (0-1.0); Monocytes % (A) 3 %; Neutrophils # (A) 7.4 k/uL (1.3-7.7); Neutrophils % (A) 80 %; Poikilocytosis Slight; RBC 4.07 m/uL (3.80-5.40); RDW 15.2 % (11.5-15.5); WBC 9.3 k/uL (3.8-10.6)
[2023-05-02 06:20] LABS: Platelet Count 96 k/uL (150-450)
--- NOTE | 2023-05-02 06:43 | P.DS ---
Providers Date of admission: 05/01/23 05:54 Expected date of discharge: 05/02/23 Attending physician: Iris Vallejo MD Primary care physician: Stated None Hospital Course: Ms. Gross is a 22 year old now PPD#1 s/p vaginal delivery complicated by mild shoulder dystocia after elective induction of labor. She also required a dose of IM Methergine in her recovery due to uterine atony. The patient is doing well this morning and has no complaints. She desires discharge home. She reports minimal lochia, passing flatus, voiding without difficulty, ambulating, and eating/drinking without nausea or vomiting. doing well at bedside, s/p circumcision. She denies chest pain, shortness of breathing, fevers, or chills overnight. She denies pain or swelling in the legs. restrictions are reviewed with the patient including pelvic rest for 6 weeks. The patient is encouraged to call the office if she experiences any heavy bleeding, foul-smelling discharge, breast complaints, or any if she has any other concerns. She will follow up in the office in 6 weeks for exam. The patient plans to use OTC Motrin and Tylenol as needed for pain. All questions are answered. Assessment: 22 year old now PPD#1 s/p vaginal delivery complicated by mild shoulder dystocia Patient Condition at Discharge: Good Plan - Discharge Summary Discharge Rx Participant: No New Discharge Prescriptions: No Action Vit No.179/Iron/Folic [ Tablet] 1 tab PO DAILY Discharge Medication List Vit No.179/Iron/Folic [ Tablet] 1 tab PO DAILY 01/25/23 [History] Follow up Appointment(s)/Referral(s): Iris Vallejo MD [STAFF PHYSICIAN] - 6 Weeks Discharge Disposition: HOME SELF-CARE
[2023-05-02 09:12] VITALS: BP 113/75; PULSE 88; TEMP 97.8
== END 2023-05-02 11:30 | disposition home or self-care (01) | DRG 560 ==
LOC: 4FBP 05:54
PROVIDERS: ADMIT Obstetrics & Gynecology; ATTEND Obstetrics & Gynecology
PROC: 3E033VJ Introduction of Other Hormone into Peripheral Vein, Percutaneous Approach (ICD-10-PCS; principal; 2023-05-01)
PROC: 10E0XZZ Delivery of Products of Conception, External Approach (ICD-10-PCS; 2023-05-01)
DX: O66.0 Obstructed labor due to shoulder dystocia (principal); Z37.0 Single live birth; F17.290 Nicotine dependence, other tobacco product, uncomplicated; O99.334 Smoking (tobacco) complicating childbirth; O62.2 Other uterine inertia; Z3A.39 39 weeks gestation of pregnancy; Z91.018 Allergy to other foods; Z28.310 Unvaccinated for COVID-19
CPT/HCPCS: 85025; 86850; 86900; 86901

== ENCOUNTER 2024-03-18 18:17 | Emergency (ER) | payer OTHER ==
[2024-03-18 18:49] LABS: Appearance,Urine Clear (Clear); Bacteria,Urine Rare /hpf; Bilirubin,Urine Negative (Negative); Blood,Urine Trace (Negative); Color,Urine Yellow; Glucose,Urine (UA) Negative (Negative); Ketones,Urine Negative (Negative); Leukocyte Esterase,Urine Negative (Negative); Mucus,Urine Occasional /hpf; Nitrite,Urine Negative (Negative); PH, Urine 6.5 (5.0-8.0); Protein,Urine Negative (Negative); RBC,Urine <1 /hpf (0-5); Specific Gravity,Urine 1.029 (1.001-1.035); Squamous Epithelial Cell,Urine 2 /hpf (0-4); WBC,Urine 2 /hpf (0-5)
--- NOTE | 2024-03-18 19:41 | ED ---
Abdominal Pain HPI - General Chief Complaint: Abdominal Pain Stated Complaint: poss Time Seen by Provider: 03/18/24 18:59 Source: patient, RN notes reviewed Mode of arrival: ambulatory Limitations: no limitations - History of Present Illness Initial Comments: This is a 23-year-old female who presents to the emergency department for pelvic pain and a test. Patient states that she was having intercourse this morning and afterwards developed bleeding and cramping lower abdomen. She had an ectopic in 2020 and states that she wanted to be evaluated to make sure she is not having another one. She had 3 positive tests last month, but 2 negative ones this month. Patient states that she has not had any pain or cramping for several hours at this point and currently feels fine. MD Complaint: abdominal pain - Related Data Home Medications Medication Instructions Recorded Confirmed Vit No.179/Iron/Folic 1 tab PO DAILY 01/25/23 05/01/23 [ Tablet] Allergies Allergy/AdvReac Type Severity Reaction Status Date / Time pineapple Allergy Unknown Verified 03/18/24 18:23 Review of Systems ROS Statement: Those systems with pertinent positive or pertinent negative responses have been documented in the HPI. ROS Other: All systems not noted in ROS Statement are negative. Past Medical History Past Medical History: No Reported History Additional Past Medical History / Comment(s): glaucoma History of Any Multi-Drug Resistant Organisms: None Reported Past Surgical History: Ear Surgery Additional Past Surgical History / Comment(s): tubes in ears as child. Left salpingectomy Past Anesthesia/Blood Transfusion Reactions: No Reported Reaction Past Psychological History: Anxiety, Depression Smoking Status: Vaper Past Alcohol Use History: None Reported Past Drug Use History: None Reported - Past Family History Father Family Medical History: No Reported History General Exam Limitations: no limitations General appearance: alert, in no apparent distress Head exam: Present: atraumatic, normocephalic, normal inspection Respiratory exam: Present: normal lung sounds bilaterally. Absent: respiratory distress, wheezes, rales, rhonchi, stridor Cardiovascular Exam: Present: regular rate, normal rhythm, normal heart sounds. Absent: systolic murmur, diastolic murmur, rubs, gallop, clicks GI/Abdominal exam: Present: soft, normal bowel sounds. Absent: distended, tenderness, guarding, rebound, rigid Neurological exam: Present: alert, oriented X3, CN II-XII intact Psychiatric exam: Present: normal affect, normal mood Skin exam: Present: warm, dry, intact, normal color. Absent: rash Course Vital Signs 03/18/24 03/18/24 18:23 20:09 Temperature 98.4 F 99.0 F Pulse Rate 81 59 L Respiratory 18 17 Rate Blood Pressure 115/69 99/59 O2 Sat by Pulse 99 100 Oximetry Medical Decision Making - Medical Decision Making This is a 23 year old female who presents to the emergency department for abdominal pain. Was pt. sent in by a medical professional or institution? @ -No Did you speak to anyone other than the patient for history? @ -No Did you review nursing and triage notes? @ -Yes, and I agree, it is accurate with regards to the patient's symptoms. Were old charts reviewed? @ -No Differential Diagnosis? @ -Differential Abdominal Pain Women: Appendicitis, Cholecystitis, diverticulosis, ischemic bowel, pancreatitis, hepatitis, UTI, gastroenteritis, AAA, incarcerated hernia, bowel obstruction, constipation, inflammatory bowel, hepatitis, peptic ulcer disease, splenic infarction, perforated viscus, vulvitis, ovarian torsion, PID, kidney stone, placenta abruption, this is not meant to be an all-inclusive list EKG interpreted by me (3pts min.)? @ -Not obtained X-rays interpreted by me (1pt min.)? @ -Not obtained CT interpreted by me (1pt min.)? @ -Not obtained U/S interpreted by me (1pt. min.)? @ -Not obtained What testing was considered but not performed? (CT, X-rays, U/S, labs)? Why? @ -Serum quantitative hCG, however patient declined. What meds were considered but not given? Why? @ -Not obtained Did you discuss the management of the patient with other professionals? @ -No Did you reconcile home meds? @ -No Was smoking cessation discussed for >3mins.? @ -No Was critical care preformed (if so, how long)? @ -No Were there social determinants of health that impacted care today? How? (Homelessness, low income, unemployed, alcoholism, drug addiction, transportation, low edu. Level, literacy, decrease access to med. care, detention, rehab)? @ -No Was there de-escalation of care discussed even if they declined? (Discuss DNR or withdrawal of care, Hospice)? @ -No What co-morbidities impacted this encounter? (DM, HTN, Smoking, COPD, CAD, Cancer, CVA, Hep., AIDS, mental health diagnosis, sleep apnea, morbid obesity)? @ -None Was patient admitted / discharged? @ -Discharged. Urinalysis negative for signs of infection and urine test negative. I did offer a serum hCG quantitative test in the event that it was a very early , however patient declined. I was also in agreement with this as she is currently asymptomatic and requested discharge home at that point. Advised ibuprofen and Tylenol as needed for any additional pain relief and follow-up with her PCP. Patient discharged home in stable condition. Case discussed with ED attending Dr. Posey. Return precautions reviewed in depth, the patient is instructed to return to the emergency department with any new, worsening, or concerning symptoms. Patient verbalized understanding. Undiagnosed new problem with uncertain prognosis? @ -None Drug Therapy requiring intensive monitoring for toxicity (Heparin, Nitro, Insulin, Cardizem)? @ -None Were any procedures done? @ -None Diagnosis/symptom? @ -Pelvic pain, vaginal bleeding Acute, or Chronic, or Acute on Chronic? @ -Acute Uncomplicated (without systemic symptoms) or Complicated (systemic symptoms)? @ -Uncomplicated Side effects of treatment? @ -None Exacerbation, Progression, or Severe Exacerbation] @ -Not applicable Poses a threat to life or bodily function? @ -No - Lab Data Lab Results 03/18/24 03/18/24 Range/Units 18:35 18:35 Urine Color Yellow Urine Appearance Clear (Clear) Urine pH 6.5 (5.0-8.0) Ur Specific [place] 1.029 (1.001-1.035) Urine Protein Negative (Negative) Urine Glucose (UA) Negative (Negative) Urine Ketones Negative (Negative) Urine Blood Trace H (Negative) Urine Nitrite Negative (Negative) Urine Bilirubin Negative (Negative) Urine Urobilinogen 2.0 (<2.0) mg/dL Ur Leukocyte Esterase Negative (Negative) Urine RBC <1 (0-5) /hpf Urine WBC 2 (0-5) /hpf Ur Squamous Epith Cells 2 (0-4) /hpf Urine Bacteria Rare H (None) /hpf Urine Mucus Occasional H (None) /hpf Urine HCG, Qual Not Detected (Not Detectd) Disposition Clinical Impression: Pelvic pain, Vaginal bleeding Disposition: HOME SELF-CARE Instructions (If sedation given, give patient instructions): Pelvic Pain in Wom en (ED) Additional Instructions: Return to the emergency department with any new, worsening, or concerning symptoms. Alternate with ibuprofen and Tylenol as needed for pain relief. Follow up with your primary care provider in 1-2 days. Is patient prescribed a controlled substance at d/c from ED?: No Referrals: None,Stated [Primary Care Provider] - 1-2 days Time of Disposition: 19:40
[2024-03-18 20:10] VITALS: BP 99/59; PULSE 59; RESP 17; TEMP 99
== END 2024-03-18 20:10 | disposition home or self-care (01) ==
LOC: EC 18:17
DX: N93.9 Abnormal uterine and vaginal bleeding, unspecified (principal); R10.2 Pelvic and perineal pain; F17.290 Nicotine dependence, other tobacco product, uncomplicated; Z91.018 Allergy to other foods
CPT/HCPCS: 81001; 81025; 99283

== ENCOUNTER 2024-05-27 06:12 | Day surgery (SDC) | payer OTHER ==
[2024-05-24 08:37] VITALS: BMI 23.1
[~2024-05-27 06:12] MED LIST changes: -LACTATED RINGERS 1,000 ML IV ONE; +Pre Op ABX Message 1 EACH MISC MISCELLANE ONE; -SODIUM CHLORIDE 0.9% 500 ML 500 ML IV ONE
[2024-05-27] MEDS: IV FLUID CONTINUATION 1,000 ML IV ONE (06:36)
[2024-05-27] MEDS ORDERED: MIDAZOLAM 2 MG/2 ML VIAL IV PRN (07:00)
[2024-05-27] MEDS: DEXAMETHASONE SOD PHOSPHATE 4 MG/ML 1 ML VIAL IV ONE (07:02)
[2024-05-27] MEDS: LACTATED RINGERS 1,000 ML IV SCH (07:02)
[2024-05-27] MEDS: ONDANSETRON 4 MG/2 ML VIAL IVP ONE (07:02)
[2024-05-27] MEDS: SCOPOLAMINE 1 MG/72 HR PATCH TRANSDERM ONE (07:03)
[2024-05-27] MEDS ORDERED: NEOSTIGMINE 1 MG/ML 10 ML VIAL ONE (07:26)
[2024-05-27] MEDS ORDERED: LIDOCAINE 4% LTA KIT (4 ML) TOPICAL ONE (07:26)
[2024-05-27] MEDS ORDERED: SUCCINYLCHOLINE CHLORIDE 200 MG/10 ML VIAL IV ONE (07:26)
[2024-05-27] MEDS ORDERED: GLYCOPYRROLATE 0.2 MG/ML 2 ML VIAL ONE (07:26)
[2024-05-27] MEDS ORDERED: LIDOCAINE 1% INJ 10MG/ML (20 ML MDV) ONE (07:26)
[2024-05-27] MEDS ORDERED: ROCURONIUM 10 MG/ML (5 ML VIAL) IV ONE (07:26)
[2024-05-27] MEDS ORDERED: MIDAZOLAM 2 MG/2 ML VIAL ONE (07:26)
[2024-05-27] MEDS ORDERED: fentaNYL (PF) 50 MCG/ML 2 ML AMP ONE (07:26)
[2024-05-27] MEDS ORDERED: PROPOFOL 10 MG/ML 20 ML VIAL IV ONE (07:26)
[2024-05-27] MEDS: BUPIVACAINE (PF) 0.25% 30 ML VIAL SQ ONE ×2 (07:48→08:04)
--- NOTE | 2024-05-27 08:10 | P.OP ---
Date of Procedure: 05/27/24 Preoperative Diagnosis: 1. Family Planning 2. Risk Reduction Postoperative Diagnosis: Same Procedure(s) Performed: Laparoscopic Bilateral Salpingectomy Implants: None Anesthesia: RENITA Surgeon: Iris Vallejo Estimated Blood Loss (ml): 5 IV fluids (ml): 500 Urine output (ml): 50 Pathology: other (bilateral fallopian tubes) Condition: stable Disposition: same day Indications for Procedure: Ms. Gross is a 23 year old female who presents for Laparoscopic Salpingectomy for permanent contraception and risk reduction. Risks, benefits, and alternatives to surgery are discussed with the patient including risk of bleeding, infection, damage to surrounding structures, laparotomy, and post- operative VTE. We also discussed the possibility of regret and the irreversibility of the procedure. She understands she would never be able to become again without IVF. All questions answered. Operative Findings: Normal appearing uterus. Left fallopian tube with post-surgical changes and adhesions after salpingostomy. Right fallopian tube within normal limits. Bilateral ovaries within normal limits. Normal appearing pelvis. Description of Procedure: Patient was taken to the OR with IV fluid running and pneumatic compression stockings on both legs. General anesthesia was obtained without difficulty. The patient was placed in the dorsal lithotomy position with Ford-type stirrups with knees bent at 30 degree angles. Examination under anesthesia revealed a normal-sized, anteverted uterus. The patient as prepared and draped. The bladder was emptied. A speculum was placed into the vagina. The anterior lip of the cervix was grasped with a single-toothed tenaculum. A uterine manipulator was introduced. A horizontal skin incision was made at the umbilical fold. The periumbilical skin was manually elevated. The Veress needle was introduced into the peritoneal cavity at a straight angle without difficulty. A saline drop test was performed to validate intraperitoneal placement. The pneumoperitoneum was established with CO2 gas to a pressure of 15mmHg. A 5mm trocar was inserted into the abdomen under direct laparoscopic visualization. Intraabdominal survey revealed lack of any visceral or vascular injury. The pelvic and abdominal anatomy was noted as above. Two additional laparoscopic assit ports were placed in the right and left lower quadrants. A Odalis Grasper was used to picker packer the fimbriated end of the left fallopian tube. The LigaSure device was used to seal and ligate the fallopian tube sequentially to the level of the uterine cornua. The fallopian tube was then transected and removed through the laparoscopic port. This process was repeated on the right side. Excellent hemostasis was noted at the end of the case. The patient tolerated the procedure well. All instruments were removed from the abdomen, the incisions were closed with 4-0 Monocryl. All instruments were also removed from the vagina, and all co unts were correct times two. The patient was taken to the recovery room in stable condition.
[2024-05-27 08:20] VITALS: TEMP 97.7
[2024-05-27] MEDS: HYDROmorphone 0.5 MG/0.5 ML SYRINGE IVP PRN (08:33)
[2024-05-27] MEDS: KETOROLAC 15 MG/ML 1 ML VIAL IVP STA (08:37)
[2024-05-27 08:41] VITALS: RESP 16
[2024-05-27 09:27] VITALS: BP 105/57; PULSE 70
== END 2024-05-27 10:46 | disposition home or self-care (01) ==
LOC: OR 06:12
PROVIDERS: ATTEND Obstetrics & Gynecology
DX: Z30.2 Encounter for sterilization (principal); F32.A Depression, unspecified; F41.9 Anxiety disorder, unspecified; H40.9 Unspecified glaucoma; Z91.018 Allergy to other foods
CPT/HCPCS: 81025; 88302; 58661; J2250; J0330; J1100; J2710; J2405; J2003; J3010; J1885; J2704; J1171; J0665; J1596